=== PATIENT | female | born 1995 | race African-American/Black ===

== ENCOUNTER 2017-10-13 10:44 | Emergency (ER) | payer MEDICAID, OTHER ==
[~2017-10-13] VITALS: Ht 167.6 cm; Wt 89.8 kg
--- OUTSIDE RECORDS SUMMARY | 2017-10-13 10:49 | XMS REPORT | Continuity of Care Document ---
Author Author [facility] Address Unknown Phone Unavailable Allergies There is no data. Medications There is no data. Problems Date Dx Coded Attending Type Code Diagnosis Diagnosed By 05/07/2014 V20.2 WELL CHILD 05/07/2014 V65.41 EXERCISE COUNSELING 05/07/2014 V65.49 NUTRITION COUNSELING 05/07/2014 V85.52 BODY MASS INDEX PEDIATRIC 5TH PERCENTILE TO LESS THAN 85TH PERCENTILE FOR AGE 0805/07/2014 V20.2 WELL CHILD 05/07/2014 V65.41 EXERCISE COUNSELING 05/07/2014 V65.49 NUTRITION COUNSELING 05/07/2014 V85.52 BODY MASS INDEX PEDIATRIC 5TH PERCENTILE TO LESS THAN 85TH PERCENTILE FOR AGE 0905/11/2014 V74.1 TB SCREENING 05/11/2014 V74.1 TB SCREENING Procedures Code [place] [address] TB INTRADERMAL TEST 05/11/2014 Results There is no data. Encounters ACCT No. Visit Date/Time Discharge Status Pt. Type Provider Facility Loc./Unit Complaint [id number] 05/13/2014 15:10:00 05/13/2014 23:59:59 CLS Outpatient [id number] 05/11/2014 15:01:00 05/11/2014 23:59:59 CLS Outpatient
--- NOTE | 2017-10-13 12:16 | ED Cough/URI ---
General Chief Complaint: Cough/Cold/Flu Symptoms Stated Complaint: COLD/FLU SYMPTOMS Nursing Triage Note: Cough, nasal congestion, fever, N/V/D x 3 days. Source: patient Exam Limitations: no limitations History of Present Illness Date Seen by Provider: Oct 13, 2017 Time Seen by Provider: 12:16 Initial Comments 21-year-old female patient presents to the emergency department with complaints of cough, nasal congestion, rhinorrhea, and fever beginning Saturday or Saturday of last week. Reports last 3 days has had nausea, vomiting, diarrhea. denies current fever. Timing/Duration: week Severity/Quality: productive cough (clear productive cough) Prior Episodes/Possible Cause: no prior episodes Modifying Factors: Worse With Coughing, Worse With Other (eating) Allergies and Home Medications Allergies Coded Allergies: No Known Drug Allergies (Unverified , 10/13/17) Home Medications Benzonatate 200 Mg Capsule, 200 MG PO Q8H PRN for COUGH, #30 Ref 0 Prescribed by: ANDI DENG on 10/13/17 1238 Guaifenesin/Pseudoephedrne HCl 1 Each Tab.er.12h, 1 EACH PO Q12H PRN for CONGESTION, #20 Ref 0 Prescribed by: ANDI DENG on 10/13/17 1238 Ondansetron 8 Mg Tab.rapdis, 8 MG PO Q6H PRN for NAUSEA/VOMITING-1ST LINE, #10 Ref 0 Prescribed by: ANDI DENG on 10/13/17 1238 Constitutional: see HPI, chills, No diaphoresis, No fever (denies current fever ), malaise EENTM: see HPI, nose congestion, throat pain, other (rhinorrhea), No ear discharge, No ear pain, No throat swelling Respiratory: cough, phlegm, No short of breath, No stridor, No wheezing Cardiovascular: no symptoms reported Gastrointestinal: No abdominal pain, No constipation, No diarrhea, loss of appetite, No melena, nausea, vomiting Genitourinary: No decreased output, No dysuria, No frequency, No hematuria, No pain Musculoskeletal: other (generalized bodyaches) Skin: no symptoms reported Psychiatric/Neurological: No Symptoms Reported All Other Systems Reviewed Negative Unless Noted: Yes (Negative excepted noted.) Past Mkixvrq-Lpwqhf-Wmcxwr Hx Patient Social History Alcohol Use: Occasionally Uses Alcohol Beverage of Choice: Beer Recreational Drug Use: No Smoking Status: Never a Smoker 2nd Hand Smoke Exposure: No Recent Foreign Travel: No Contact w/Someone Who Travel: No Recent Infectious Disease Expo: No Recent Hopitalizations: No Ebola Symptoms: Denies Symptoms Listed Immunizations Up To Date Tetanus Booster (TDap): Unknown Seasonal Allergies Seasonal Allergies: No Surgeries History of Surgeries: No Respiratory History of Respiratory Disorde: No Cardiovascular History of Cardiac Disorders: No Neurological History of Neurological Disord: No Reproductive System Sexually Transmitted Disease: No HIV/AIDS: No Genitourinary History of Genitourinary Disor: No Gastrointestinal History of Gastrointestinal Di: No Musculoskeletal History of Musculoskeletal Dis: No Endocrine History of Endocrine Disorders: No HEENT History of HEENT Disorders: No Cancer History of Cancer: No Psychosocial History of Psychiatric Problem: No Integumentary History of Skin or Integumenta: No Blood Transfusions History of Blood Disorders: No Adverse Reaction to a Blood Tr: No Reviewed Nursing Assessment Reviewed/Agree w Nursing PMH: Yes Family Medical History Significant Family History: No Pertinent Family Hx Physical Exam Vital Signs Vital Sign - Last 12Hours 10/13/17 11:05 Temp 99.2 Pulse 92 Resp 18 B/P (MAP) 130/81 O2 Delivery Room Air Capillary Refill : General Appearance: WD/WN, no apparent distress HEENT: PERRL/EOMI, TMs normal, pharyngeal erythema, No tonsillar exudate, other ((+) nasal congestion and nasal mucosal swelling . (+) rhinorrhea.) Neck: non-tender, full range of motion, supple, lymphadenopathy (R), lymphadenopathy (L) Respiratory: lungs clear, normal breath sounds, no respiratory distress, no accessory muscle use Cardiovascular: normal peripheral pulses, regular rate, rhythm, no edema, no murmur Gastrointestinal: normal bowel sounds, soft, no organomegaly, No distended, No guarding, No rebound, tenderness (subcostal tenderness.) Extremities: no pedal edema, normal capillary refill Neurologic/Psychiatric: alert, normal mood/affect, oriented x 3 Skin: normal color, warm/dry Progress/Results/Core Measures Suspected Sepsis SIRS Temperature:99.2 Pulse: Respiratory Rate: Blood Pressure / Mean: Results/Orders Micro Results Microbiology 10/13/17 Influenza Types A,B Antigen (GAYLE) - Final, Complete My Orders Orders - ANDI DENG Influenza A And B Antigens (10/13/17 11:27) Ondansetron Oral Dissolve Tab (Zofran (10/13/17 12:27) Ibuprofen Tablet (Motrin Tablet) (10/13/17 12:27) Benzonatate Capsule (Tessalon Perles) (10/13/17 12:30) Medications Given in ED Current Medications Medications Dose Ordered Sig/Pili Route Start Time Stop Time Status Last Admin Dose Admin Benzonatate 200 mg ONCE ONCE PO 10/13/17 12:30 10/13/17 12:31 DC 10/13/17 12:38 200 MG Vital Signs/I&O Vital Sign - Last 12Hours 10/13/17 11:05 Temp 99.2 Pulse 92 Resp 18 B/P (MAP) 130/81 O2 Delivery Room Air Capillary Refill : Departure Communication (Admissions) Progress Notes lab findings discussed with the patient. patient tolerating po without difficulty. plan for dsch to home. Impression Impression: Primary Impression: Nausea, vomiting, and diarrhea Additional Impression: Influenza-like illness Disposition: HOME, SELF-CARE Condition: Improved Departure-Patient Inst. Decision time for Depature: 12:40 Referrals: [facility] (PCP/Family) Primary Care Physician Patient Instructions: Flu, Adult (DC), Viral Gastroenteritis, Adult (DC) Add. Discharge Instructions: All discharge instructions reviewed with patient and/or family. Voiced understanding. Medications as instructed. Tylenol extra strength over-the- counter as directed for pain or fever. Ibuprofen 800 mg by mouth every 8 hours as needed for pain or fever. Push fluids. Cool humidifier. Saline nasal spray [id number] as needed for nasal congestion. Follow-up with [facility] as an outpatient for recheck if no improvement in symptoms. Return in the emergency department immediately for worsened vomiting , decreased urination, inability to urinate, fever, shortness of air, difficulty swallowing, abdominal pain, or any other concerns. Scripts Guaifenesin/Pseudoephedrne HCl (Mucinex D ER Tablet) 1 Each Tab.er.12h 1 EACH PO Q12H Y for CONGESTION, #20 TAB 0 Refills Prov: ANDI DENG 10/13/17 Benzonatate (Benzonatate) 200 Mg Capsule 200 MG PO Q8H Y for COUGH, #30 CAP 0 Refills Prov: ANDI DENG 10/13/17 Ondansetron (Ondansetron Odt) 8 Mg Tab.rapdis 8 MG PO Q6H Y for NAUSEA/VOMITING-1ST LINE, #10 TAB 0 Refills Prov: ANDI DENG 10/13/17 Work/School Note: School/Childcare Release Date Seen in the Emergency Department: Oct 13, 2017 Return to School: Oct 16, 2017 Restrictions: Return-No Fever (24hrs), Return-No Vomiting(24hrs) ANDI DENG Oct 13, 2017 12:16
[2017-10-13] MEDS ORDERED: IBUPROFEN 800 MG (MOTRIN) TAB PO STA (12:27)
[2017-10-13] MEDS ORDERED: ONDANSETRON 4 MG (ZOFRAN) ORAL DISSOLVE TAB SL STA (12:27)
[2017-10-13] MEDS ORDERED: BENZONATATE 100 MG (TESSALON) CAPSULE PO ONE (12:30)
[2017-10-13] MEDS ORDERED: GUAI-148 PO (12:38)
[2017-10-13] MEDS ORDERED: BENZ200C51 PO (12:38)
[2017-10-13] MEDS ORDERED: ONDA8TAB13 PO (12:38)
== END 2017-10-13 13:00 | disposition home or self-care (01) ==
LOC: ER 10:47
DX: J11.1 Influenza due to unidentified influenza virus with other respiratory manifestations (principal); R19.7 Diarrhea, unspecified
CPT/HCPCS: 87804; 99283

== ENCOUNTER 2018-01-05 14:58 | Emergency (ER) | payer MEDICAID, OTHER ==
[~2018-01-05] VITALS: Ht 167.6 cm; Wt 89.8 kg
[~2018-01-05 14:58] MED LIST: BENZ200C51 PO; GUAI-148 PO; ONDA8TAB13 PO
--- OUTSIDE RECORDS SUMMARY | 2018-01-05 15:02 | XMS REPORT | Continuity of Care Document ---
Author Author [facility] Address Unknown Phone Unavailable Allergies Active Description Code Type Severity Reaction Onset Reported/Identified Relationship to Patient Clinical Status Yes No Known Drug Allergies [id number] Drug Allergy Unknown N/A 10/13/2017 Medications There is no data. Problems Date [...] V74.1 TB SCREENING 05/11/2014 V74.1 TB SCREENING 10/13/2017 ANDI SMITH Ot J11.1 FLU DUE TO UNIDENTIFIED INFLUENZA VIRUS 10/13/2017 ANDI SMITH Ot R09.81 NASAL CONGESTION 10/13/2017 ANDI SMITH Ot R19.7 DIARRHEA, UNSPECIFIED 10/15/2017 ANDI SMITH Ot J11.1 FLU DUE TO UNIDENTIFIED INFLUENZA VIRUS 10/15/2017 ANDI SMITH Ot R09.81 NASAL CONGESTION 10/15/2017 ANDI SMITH Ot R19.7 DIARRHEA, UNSPECIFIED Procedures Code [place] [address] TB INTRADERMAL TEST 05/11/2014 Results Test Result Range Influenza virus A and B antigen detection - 10/13/17 11:11 FLU RESULT NEGATIVE FOR INFLUENZA A AND B ANTIGENS BY IA NRG Encounters ACCT No. Visit Date/Time Discharge Status Pt. Type Provider Facility Loc./Unit Complaint [id number] 05/13/2014 15:10:00 05/13/2014 23:59:59 CLS Outpatient [id number] 05/11/2014 15:01:00 05/11/2014 23:59:59 CLS Outpatient [id number] 10/13/2017 10:47:00 10/13/2017 13:00:00 DIS Emergency ANDI SMITH [facility] ER COLD/FLU SYMPTOMS
--- OUTSIDE RECORDS SUMMARY | 2018-01-05 15:02 | XMS REPORT ---
Author Author Mely Rubio [facility] Address [address] [place] [address] Care Team Providers Care Resistor Tester Name Role Phone Mely Rubio Unavailable PROBLEMS Type Condition ICD9-CM Code [id number] Code Onset Dates Condition Status SNOMED Code Problem Positive depression screening R68.89 Active [id number] Problem Myopia, bilateral H52.13 Active 83054719 Problem Cross bite 524.27 Active 667154104 Problem Caries K02.9 Active 90155428 Problem Dental examination V72.2 Active [id number] ALLERGIES No Information ENCOUNTERS Encounter Location Date Diagnosis [facility] [address] [place] [address] Oct, Positive depression screening R68.89 Dental [address] [id number] [place] [id number] Oct, Caries K02.9 [facility] [address] [id number] Oct, General counseling for prescription of oral contraceptives Z30.9 ; Pelvic pain R10.2 ; Dysmenorrhea N94.6 ; Menorrhagia with regular cycle N92.0 ; Positive depression screening R68.89 and Encounter for test, result negative Z32.02 Dental [address] [place] [address] [id number] Aug, Caries K02.9 Dental [id number] [place] [id number] Aug, [facility] [address] [place], [place] [id number] Jul, Myopia, bilateral H52.13 [facility] [address] [place] [address] [id number] Jul, Myopia, bilateral H52.13 Dental [id number] [place] [address] [id number] Jul, Disturbance of tooth eruption or exfoliation K00.6 Optometry [address] [place], [place] [id number] Jun, Myopia, bilateral H52.13 Dental [address] [id number] Jun, Caries K02.[address] [id number] Apr Need for prophylactic vaccination and inoculation against single disease V05.[address] [id number] Apr, Dental caries 521.[address] [id number] Mar Well child check V20.[address] [id number] Mar, Decay, teeth 521.[address] [id number] January, Dental [address] [id number] Dec, Chronic gingivitis, plaque induced 523.[address] [id number] Nov, Dental examination V72.2 ; Cross bite 524.27 ; Chronic gingivitis, plaque induced 523.10 ; Dental caries 521.00 ; Accretions on teeth 523.6 and Disturbance, tooth, eruption 520.[address] [id number] Oct, Pediatrics [id number] [place] [address] [id number] Sep Pharyngitis 462 ; Allergic rhinitis 477.9 and Sinusitis 473.[address] [id number] Sep IMMUNIZATIONS No Known Immunizations SOCIAL HISTORY Never Assessed REASON FOR VISIT [facility] Consult PLAN OF CARE VITAL SIGNS MEDICATIONS Medication Instructions Dosage Frequency Start Date End Date Duration Status Microgestin FE 09/28 1-20 MG-MCG Orally Once a day 1 tablet 24h Oct, 30 day(s) Active RESULTS No Results PROCEDURES No Known procedures INSTRUCTIONS MEDICATIONS ADMINISTERED No Known Medications
--- OUTSIDE RECORDS SUMMARY | 2018-01-05 15:02 | XMS REPORT ---
Author Author Mar Wadsworth [facility] Address [address] [place], [place] [id number] Care Team Providers Care Cellophane Wrapping Examiner Name Role Phone Mar Wadsworth Unavailable PROBLEMS Type Condition ICD9-CM Code JCK76-ZK Code Onset Dates Condition Status SNOMED Code Problem Positive depression screening R68.89 Active [id number] Problem Myopia, bilateral H52.13 Active 10993925 Problem Cross bite 524.27 Active 550143340 Problem Caries K02.9 Active 84828779 Problem Dental examination V72.2 Active [id number] ALLERGIES No Known Allergies ENCOUNTERS Encounter Location Date Diagnosis [facility] [address] [place] [address] Oct, Positive depression screening R68.89 Dental [address] [place] [address] [id number] Oct, Caries K02.9 [facility] [id number] [place] [address] [id number] Oct, General counseling for prescription of oral contraceptives Z30.9 ; Pelvic pain R10.2 ; Dysmenorrhea N94.6 ; Menorrhagia with regular cycle N92.0 ; Positive depression screening R68.89 and Encounter for test, result negative Z32.02 Dental [id number] [place] [address] [id number] Aug, Caries K02.9 Dental [id number] [place] [address] [id number] Aug, [facility] [address] [place] [id number] Jul, Myopia, bilateral H52.13 [facility] [address] [place] [address] [id number] Jul, Myopia, bilateral H52.13 Dental [id number] [place] [address] [id number] Jul, Disturbance of tooth eruption or exfoliation K00.6 Optometry [address] [place] [id number] Jun, Myopia, bilateral H52.13 Dental [address] [id number] Jun, Caries K02.9 [address] [address] [id number] Apr Need for prophylactic vaccination and inoculation against single disease V05.9 Dental [address] [id number] Apr, Dental caries 521.[address] Pediatric[address] [id number] Mar Well child check V20.2 Dental [address] [id number] Mar, Decay, teeth 521.[address] [id number] January, Dental [address] [id number] Dec, Chronic gingivitis, plaque induced 523.[address] [id number] Nov, Dental examination V72.2 ; Cross bite 524.27 ; Chronic gingivitis, plaque induced 523.10 ; Dental caries 521.00 ; Accretions on teeth 523.6 and Disturbance, tooth, eruption 520.[address] [id number] Oct, Pediatrics [address] [id number] Sep Pharyngitis 462 ; Allergic rhinitis 477.9 and Sinusitis 473.[address] [id number] Sep IMMUNIZATIONS No Known Immunizations SOCIAL HISTORY Never Assessed REASON FOR VISIT pelvic pain, abdominal pain PLAN OF CARE Activity Details Follow Up 3 Months, prn Reason:Fu on BCM VITAL SIGNS Height 66.93 in 2015-10-12 Weight 202 lbs 2015-10-12 Temperature 97.7 degrees Fahrenheit 2015-10-12 BMI 31.70 kg/m2 2015-10-12 Blood pressure systolic 111 mm Hg 2015-10-12 Blood pressure diastolic 65 mm Hg 2015-10-12 MEDICATIONS Medication Instructions Dosage Frequency Start Date End Date Duration Status Microgestin FE 09/28 1-20 MG-MCG Orally Once a day 1 tablet 24h Oct, 30 day(s) Active RESULTS No Results PROCEDURES Procedure Date Ordered Result Body Site urinalysis automated without microscopy Oct 12, 2015 TEST Oct 12, 2015 INSTRUCTIONS MEDICATIONS ADMINISTERED No Known Medications
[2018-01-05 17:23] LABS: AMPHETAMINE SCREEN, URINE NEGATIVE (NEGATIVE); BENZODIAZEPINES SCREEN URINE NEGATIVE (NEGATIVE); CANNABINOID SCREEN, URINE POSITIVE (NEGATIVE); COCAINE SCREEN URINE NEGATIVE (NEGATIVE); METHAMPHETAMINE SCREEN URINE S NEGATIVE (NEGATIVE)
[2018-01-05 17:24] LABS: BARBITURATE SCREEN URINE NEGATIVE (NEGATIVE); METHADONE STAT NEGATIVE (NEGATIVE); OPIATE SCREEN URINE NEGATIVE (NEGATIVE); OXYCODONE STAT NEGATIVE (NEGATIVE); PROPOXYPHENE STAT NEGATIVE (NEGATIVE); TRICYCLIC ANTIDEPRESSANTS SCRE NEGATIVE (NEGATIVE)
[2018-01-05 17:25] LABS: BASOPHILS % (AUTO) 0 % (0-10); EOSINOPHILS # (AUTO) 0.1 10^3/uL (0.0-0.3); EOSINOPHILS % (AUTO) 1 % (0-10); HEMATOCRIT 43 % (35-52); HEMOGLOBIN 14.7 G/DL (11.5-16.0); LYMPHOCYTES # (AUTO) 2.6 X 10^3 (1.0-4.0); LYMPHOCYTES % (AUTO) 39 % (12-44); MEAN CORPUSCULAR HEMOGLOBIN 31 PG (25-34); MEAN CORPUSCULAR HGB CONC 34 G/DL (32-36); MEAN CORPUSCULAR VOLUME 91 FL (80-99); MEAN PLATELET VOLUME 10.5 FL (7.4-10.4); MONOCYTES # (AUTO) 0.4 X 10^3 (0.0-1.0); MONOCYTES % (AUTO) 6 % (0-12); NEUTROPHILS # (AUTO) 3.6 X 10^3 (1.8-7.8); NEUTROPHILS % (AUTO) 53 % (42-75); PLATELET COUNT 265 10^3/uL (130-400); RED BLOOD COUNT 4.72 10^6/uL (4.35-5.85); RED CELL DISTRIBUTION WIDTH 12.1 % (10.0-14.5); WHITE BLOOD COUNT 6.7 10^3/uL (4.3-11.0)
[2018-01-05 17:41] LABS: ALANINE AMINOTRANSFERASE 9 U/L (0-55); ALBUMIN 4.5 GM/DL (3.2-4.5); ALKALINE PHOSPHATASE 75 U/L (40-136); BILIRUBIN,TOTAL 1.6 MG/DL (0.1-1.0); BUN/CREATININE RATIO 5; CALCIUM 9.8 MG/DL (8.5-10.1); CARBON DIOXIDE 23 MMOL/L (21-32); CHLORIDE 106 MMOL/L (98-107); CREATININE SERUM 0.78 MG/DL (0.60-1.30); GFR ESTIMATED > 60; GLUCOSE 87 MG/DL (70-105); POTASSIUM 3.4 MMOL/L (3.6-5.0); SODIUM 140 MMOL/L (135-145); TOTAL PROTEIN 8.2 GM/DL (6.4-8.2)
[2018-01-05 17:42] LABS: CLARITY,URINE SLIGHTLY CLOUDY; COLOR,URINE AMBER; GLUCOSE, URINE (UA) NEGATIVE (NEGATIVE); KETONES,URINE 1+ (NEGATIVE); LEUKOCYTE ESTERASE ,URINE 1+ (NEGATIVE); NITRITE,URINE NEGATIVE (NEGATIVE); PH,URINE 5 (5-9); PROTEIN,URINE 2+ (NEGATIVE); UROBILINOGEN,URINE 4 MG/DL (NORMAL)
--- NOTE | 2018-01-05 17:45 | ED General ---
General Chief Complaint: General Problems/Pain Stated Complaint: HEADACHE, WEAKNESS, DIZZY Nursing Triage Note: PT C/O HEADACHE AND WEAKNESS X 1 WEEK. SHE ALSO C/O NAUSEA WITHOUT VOMITING. 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 She reports that over the past week or so she has been troubled by a mild but persistent headache. There has been some blurring of visiON. She reports that her balance has been retained. She has run no fever or had any sweats or chills. She reports that some time has passed since her last optometric vision testing. Timing/Duration: 1 Week Severity: Mild, Moderate Associated Systoms: Malaise, Nausea/Vomiting Allergies and Home Medications Allergies Coded Allergies: No Known Drug Allergies (Unverified , 10/13/17) Home Medications Benzonatate 200 Mg Capsule, 200 MG PO Q8H PRN for COUGH Prescribed by: ANDI DENG on 10/13/17 1238 Guaifenesin/Pseudoephedrne HCl 1 Each Tab.er.12h, 1 EACH PO Q12H PRN for CONGESTION Prescribed by: ANDI DENG on 10/13/17 1238 Ondansetron 8 Mg Tab.rapdis, 8 MG PO Q6H PRN for NAUSEA/VOMITING-1ST LINE Prescribed by: ANDI DENG on 10/13/17 1238 Patient Home Medication List Home Medication List Reviewed: Yes Review of Systems Constitutional: see HPI EENTM: blurred vision Respiratory: no symptoms reported Cardiovascular: no symptoms reported Gastrointestinal: nausea Genitourinary: no symptoms reported Musculoskeletal: no symptoms reported Skin: no symptoms reported Psychiatric/Neurological: No Symptoms Reported Hematologic/Lymphatic: No Symptoms Reported Immunological/Allergic: no symptoms reported Past Hlcshpr-Shhcrg-Ztejxa Hx Patient Social History Alcohol Use: Occasionally Uses Number of Drinks Today: AA Alcohol Beverage of Choice: Beer Recreational Drug Use: No Smoking Status: Never a Smoker 2nd Hand Smoke Exposure: No Recent Foreign Travel: No Contact w/Someone Who Travel: No Recent Infectious Disease Expo: No Recent Hopitalizations: No Immunizations Up To Date Tetanus Booster (TDap): Unknown Seasonal Allergies Seasonal Allergies: No Past Medical History Surgeries: No Respiratory: No Cardiac: No Neurological: No Sexually Transmitted Disease: No HIV/AIDS: No Genitourinary: No Gastrointestinal: No Musculoskeletal: No Endocrine: No HEENT: No Cancer: No Psychosocial: No Integumentary: No Blood Disorders: No Adverse Reaction/Blood Tranf: No Family Medical History No Pertinent Family Hx Physical Exam Vital Signs Vital Signs - First Documented 01/05/18 15:16 Temp 98.9 Pulse 90 Resp 16 B/P (MAP) 135/90 (105) Pulse Ox 97 O2 Delivery Room Air Capillary Refill : Less Than 3 Seconds General Appearance: No Apparent Distress Eyes: Bilateral Eye Normal Inspection, Bilateral Eye PERRL HEENT: Normal ENT Inspection Neck: Full Range of Motion, Normal Inspection, Non Tender, Supple, Carotid Bruit Respiratory: Chest Non Tender, Lungs Clear, Normal Breath Sounds, No Accessory Muscle Use, No Respiratory Distress Cardiovascular: Regular Rate, Rhythm, No Edema, No Gallop, No JVD, No Murmur, Normal Peripheral Pulses Gastrointestinal: Normal Bowel Sounds, No Organomegaly, No Pulsatile Mass, Non Tender, Soft Back: Normal Inspection, No CVA Tenderness, No Vertebral Tenderness Extremity: Normal Capillary Refill, Normal Inspection, Normal Range of Motion, Non Tender, No Calf Tenderness, No Pedal Edema Neurologic/Psychiatric: Alert, Oriented x3, No Motor/Sensory Deficits, Normal Mood/Affect Skin: Normal Color, Warm/Dry Lymphatic: No Adenopathy Progress/Results/Core Measures Suspected Sepsis Recent Fever Within 48 Hours: No Infection Criteria Present: None New/Unexplained Altered Menta: No Sepsis Screen: No Definite Risk SIRS Temperature:98.9 Pulse: 90 Respiratory Rate: 16 Laboratory Tests 01/05/18 17:09: White Blood Count 6.7 Blood Pressure 135 /90 Mean: 105 Laboratory Tests 01/05/18 17:09: Creatinine 0.78, Platelet Count 265, Total Bilirubin 1.6H Results/Orders Lab Results Laboratory Tests Test 01/05/18 17:00 01/05/18 17:09 Range/Units Urine Color RUCHI H Urine Clarity SLIGHTLY CLOUDY Urine pH 5 5-9 Urine Specific [place] 1.025 H 1.016-1.022 Urine Protein 2+ H NEGATIVE Urine Glucose (UA) NEGATIVE NEGATIVE Urine Ketones 1+ H NEGATIVE Urine Nitrite NEGATIVE NEGATIVE Urine Bilirubin 1+ H NEGATIVE Urine Urobilinogen 4 H NORMAL MG/DL Urine Leukocyte Esterase 1+ H NEGATIVE Urine RBC (Auto) NEGATIVE NEGATIVE Urine RBC RARE /HPF Urine WBC 5-10 H /HPF Urine Squamous Epithelial Cells 2-5 /HPF Urine Renal Epithelial Cells NONE /HPF Urine Crystals PRESENT H /LPF Urine Amorphous Sediment LARGE KRISTOFER URATES H /LPF Urine Bacteria LARGE H /HPF Urine Casts NONE /LPF Urine Mucus LARGE H /LPF Urine Culture Indicated YES Urine Opiates Screen NEGATIVE NEGATIVE Urine Oxycodone Screen NEGATIVE NEGATIVE Urine Methadone Screen NEGATIVE NEGATIVE Urine Propoxyphene Screen NEGATIVE NEGATIVE Urine Barbiturates Screen NEGATIVE NEGATIVE Ur Tricyclic Antidepressants Screen NEGATIVE NEGATIVE Urine Phencyclidine Screen NEGATIVE NEGATIVE Urine Amphetamines Screen NEGATIVE NEGATIVE Urine Methamphetamines Screen NEGATIVE NEGATIVE Urine Benzodiazepines Screen NEGATIVE NEGATIVE Urine Cocaine Screen NEGATIVE NEGATIVE Urine Cannabinoids Screen POSITIVE H NEGATIVE White Blood Count 6.7 4.3-11.0 10^3/uL Red Blood Count 4.72 4.35-5.85 10^6/uL Hemoglobin 14.7 11.5-16.0 G/DL Hematocrit 43 35-52 % Mean Corpuscular Volume 91 80-99 FL Mean Corpuscular Hemoglobin 31 25-34 PG Mean Corpuscular Hemoglobin Concent 34 32-36 G/DL Red Cell Distribution Width 12.1 10.0-14.5 % Platelet Count 265 130-400 10^3/uL Mean Platelet Volume 10.5 H 7.4-10.4 FL Neutrophils (%) (Auto) 53 42-75 % Lymphocytes (%) (Auto) 39 12-44 % Monocytes (%) (Auto) 6 0-12 % Eosinophils (%) (Auto) 1 0-10 % Basophils (%) (Auto) 0 0-10 % Neutrophils # (Auto) 3.6 1.8-7.8 X 10^3 Lymphocytes # (Auto) 2.6 1.0-4.0 X 10^3 Monocytes # (Auto) 0.4 0.0-1.0 X 10^3 Eosinophils # (Auto) 0.1 0.0-0.3 10^3/uL Basophils # (Auto) 0.0 0.0-0.1 10^3/uL Sodium Level 140 135-145 MMOL/L Potassium Level 3.4 L 3.6-5.0 MMOL/L Chloride Level 106 98-107 MMOL/L Carbon Dioxide Level 23 21-32 MMOL/L Anion Gap 11 5-14 MMOL/L Blood Urea Nitrogen 4 L 7-18 MG/DL Creatinine 0.78 0.60-1.30 MG/DL Estimat Glomerular Filtration Rate > 60 BUN/Creatinine Ratio 5 Glucose Level 87 70-105 MG/DL Calcium Level 9.8 8.5-10.1 MG/DL Total Bilirubin 1.6 H 0.1-1.0 MG/DL Aspartate Amino Transf (AST/SGOT) 15 5-34 U/L Alanine Aminotransferase (ALT/SGPT) 9 0-55 U/L Alkaline Phosphatase 75 40-136 U/L Total Protein 8.2 6.4-8.2 GM/DL Albumin 4.5 3.2-4.5 GM/DL My Orders Orders - RAVINDRA FERGUSON MD Cbc With Automated Diff (01/05/18 16:48) Comprehensive Metabolic Panel (01/05/18 16:48) Drug Screen Stat (Urine) (01/05/18 16:48) Ua Culture If Indicated (01/05/18 16:48) Urine Culture (01/05/18 17:00) Vital Signs/I&O 01/05/18 15:16 Temp 98.9 Pulse 90 Resp 16 B/P (MAP) 135/90 (105) Pulse Ox 97 O2 Delivery Room Air Capillary Refill : Less Than 3 Seconds Blood Pressure Mean: 105 Departure Communication (Admissions) Lab work basically normal save a UA which suggests urinary tract infection. Impression Primary Impression: UTI Additional Impression: headache Disposition: 01 HOME, SELF-CARE Condition: Stable/Unchanged Departure-Patient Inst. Decision time for Depature: 17:56 Referrals: [facility] (PCP) Primary Care Physician Add. Discharge Instructions: All discharge instructions reviewed with patient and/or family. Voiced understanding. Plenty of liquids Antibiotics as prescribed. Arrange a vision check Scripts Cephalexin (Keflex) 500 Mg Capsule 500 MG PO 3 TIMES A DAY 3 TIME, #15 CAP Prov: RAVINDRA FERGUSON MD 01/05/18 RAVINDRA FERGUSON MD Jan 05, 2018 17:45
[2018-01-05 17:48] LABS: AMORPHOUS SEDIMENT,UR LARGE AMOR URATES /LPF; BACTERIA,URINE LARGE /HPF; BILIRUBIN,URINE 1+ (NEGATIVE); RBC,URINE RARE /HPF
[2018-01-05] MEDS ORDERED: CEPH-507 PO (17:58)
[2018-01-05] MEDS ORDERED: CEFDINIR 300 MG (OMNICEF) CAP PO ONE (18:00)
[2018-01-05 18:10] VITALS: BP 135/90
== END 2018-01-05 18:10 | disposition home or self-care (01) ==
LOC: EDUNIT# 14:58 → ER 14:59
DX: N39.0 Urinary tract infection, site not specified (principal); R51 Headache
CPT/HCPCS: 36415; 80053; 80306; 81000; 85025; 87088; 99283

== ENCOUNTER → 2018-07-23 | Emergency (ER) | payer SELFPAY ==
[~2018-07-23] VITALS: Ht 170.2 cm; Wt 89.8 kg
[~2018-07-23] MED LIST changes: +ANTACID SUSP 30 ML UDC (MYLANTA) PO ONE; +CEPH-507 PO; +LIDOCAINE 2% VISCOUS 15 ML UDC PO ONE; +SUCR1TAB36 PO
[2018-07-23 12:37] LABS: BASOPHILS % (AUTO) 0 % (0-10); EOSINOPHILS # (AUTO) 0.1 10^3/uL (0.0-0.3); EOSINOPHILS % (AUTO) 1 % (0-10); HEMATOCRIT 39 % (35-52); HEMOGLOBIN 13.3 G/DL (11.5-16.0); LYMPHOCYTES # (AUTO) 1.9 X 10^3 (1.0-4.0); LYMPHOCYTES % (AUTO) 23 % (12-44); MEAN CORPUSCULAR HEMOGLOBIN 31 PG (25-34); MEAN CORPUSCULAR HGB CONC 34 G/DL (32-36); MEAN CORPUSCULAR VOLUME 91 FL (80-99); MEAN PLATELET VOLUME 10.5 FL (7.4-10.4); MONOCYTES # (AUTO) 0.5 X 10^3 (0.0-1.0); MONOCYTES % (AUTO) 7 % (0-12); NEUTROPHILS # (AUTO) 5.6 X 10^3 (1.8-7.8); NEUTROPHILS % (AUTO) 69 % (42-75); PLATELET COUNT 248 10^3/uL (130-400); RED BLOOD COUNT 4.32 10^6/uL (4.35-5.85); RED CELL DISTRIBUTION WIDTH 12.3 % (10.0-14.5); WHITE BLOOD COUNT 8.1 10^3/uL (4.3-11.0)
[2018-07-23 12:57] LABS: ALANINE AMINOTRANSFERASE 11 U/L (0-55); ALBUMIN 4.5 GM/DL (3.2-4.5); ALKALINE PHOSPHATASE 65 U/L (40-136); AMYLASE 54 U/L (25-125); BILIRUBIN,TOTAL 1.3 MG/DL (0.1-1.0); BUN/CREATININE RATIO 8; CALCIUM 9.5 MG/DL (8.5-10.1); CARBON DIOXIDE 22 MMOL/L (21-32); CHLORIDE 105 MMOL/L (98-107); CREATININE SERUM 0.75 MG/DL (0.60-1.30); GFR ESTIMATED > 60; GLUCOSE 85 MG/DL (70-105); LIPASE 16 U/L (8-78); POTASSIUM 4.2 MMOL/L (3.6-5.0); SODIUM 136 MMOL/L (135-145)
[2018-07-23 13:04] LABS: BILIRUBIN,URINE NEGATIVE (NEGATIVE); CLARITY,URINE CLEAR; COLOR,URINE YELLOW; GLUCOSE, URINE (UA) NEGATIVE (NEGATIVE); KETONES,URINE 1+ (NEGATIVE); LEUKOCYTE ESTERASE ,URINE 1+ (NEGATIVE); NITRITE,URINE NEGATIVE (NEGATIVE); PH,URINE 5 (5-9); PROTEIN,URINE 2+ (NEGATIVE); UROBILINOGEN,URINE 8 MG/DL (NORMAL)
[2018-07-23 13:11] LABS: BACTERIA,URINE TRACE /HPF; RBC,URINE RARE /HPF; SQUAMOUS EPITHELIAL CELL,UR 0-2 /HPF; WBC,URINE 0-2 /HPF
--- NOTE | 2018-07-23 13:22 | ED Abdominal Pain ---
General Chief Complaint: Abdominal/GI Problems Stated Complaint: STOMACH PAIN Nursing Triage Note: Pt complains of abd pain since last night. Pt stated saw doctor in [facility] for same issue and stated she might have ulcer and to stop taking ibuprofren. Pt had [employer] last night and after could not sleep from pain. Pt complains of pain at a 9 on scale that has burning feeling. She also stated she had small bowel movement this morning and might be constipated. Sepsis Screen: No Definite Risk Source of Information: Patient Exam Limitations: No Limitations History of Present Illness Date Seen by Provider: Jul 23, 2018 Time Seen by Provider: 12:10 Initial Comments Patient is a 22-year-old female who presents to the emergency room with abdominal pain that started last night. She has been seen for stomach ulcers in the past when she was in [place] and was placed on activated magnesium for ulcers but did not take it like she was supposed to. She reports that her pain is not really improved since she was seen last became worse last night after having Borrego's. Last bowel movement was this morning. Timing/Duration: 1 Day Location: Epigastric Radiation: No Radiation Activities at Onset: None Associated Symptoms: Denies Symptoms Allergies and Home Medications Allergies Coded Allergies: No Known Drug Allergies (Unverified , 10/13/17) Home Medications Benzonatate 200 Mg Capsule, 200 MG PO Q8H PRN for COUGH Prescribed by: ANDI DENG on 10/13/17 1238 Cephalexin 500 Mg Capsule, 500 MG PO 3 TIMES A DAY 3 TIME Prescribed by: RAVINDRA FERGUSON on 01/05/18 1758 Guaifenesin/Pseudoephedrne HCl 1 Each Tab.er.12h, 1 EACH PO Q12H PRN for CONGESTION Prescribed by: ANDI DENG on 10/13/17 1238 Ondansetron 8 Mg Tab.rapdis, 8 MG PO Q6H PRN for NAUSEA/VOMITING-1ST LINE Prescribed by: ANDI DENG on 10/13/17 1238 Sucralfate 1 Gm Tablet, 1 GM PO QID PRN for 1 hour before meals Prescribed by: TANIA PALMA on 07/23/18 1322 Patient Home Medication List Home Medication List Reviewed: Yes Review of Systems Review of Systems Constitutional: see HPI; No chills, No fever Gastrointestinal: See HPI, Abdominal Pain (epigastric abdominal pain) All Other Systems Reviewed Negative Unless Noted: Yes Past Ekihpzx-Xjyfjo-Xkvert Hx Past Med/Social Hx: Reviewed Nursing Past Med/Soc Hx Patient Social History Alcohol Beverage of Choice: Beer 2nd Hand Smoke Exposure: No Recent Foreign Travel: No Contact w/Someone Who Travel: No Recent Infectious Disease Expo: No Recent Hopitalizations: No Physical Abuse: No Sexual Abuse: No Mistreated: No Fear: No Immunizations Up To Date Tetanus Booster (TDap): Unknown Seasonal Allergies Seasonal Allergies: No Past Medical History Surgeries: No Respiratory: No Cardiac: No Neurological: No : No Last Menstrual Period: Jun 11, 2018 Sexually Transmitted Disease: No HIV/AIDS: No Genitourinary: No Gastrointestinal: Yes Ulcer Musculoskeletal: No Endocrine: No HEENT: No Hearing Impairment: Denies Cancer: No Psychosocial: No Integumentary: No Blood Disorders: No Adverse Reaction/Blood Tranf: No Family Medical History Reviewed Nursing Family Hx No Pertinent Family Hx Physical Exam Vital Signs Vital Signs - First Documented 07/23/18 12:11 Temp 98.2 Pulse 82 Resp 16 B/P (MAP) 119/70 (86) Pulse Ox 99 O2 Delivery Room Air Capillary Refill : Less Than 3 Seconds Height/Weight/BMI Height: 5'7.00" Weight: 198lbs. oz. [id number]; 28.12 BMI Method:Stated General Appearance: WD/WN, no apparent distress Respiratory: chest non-tender, lungs clear, normal breath sounds, no respiratory distress, no accessory muscle use Cardiovascular: normal peripheral pulses, regular rate, rhythm, no edema, no gallop, no JVD, no murmur Gastrointestinal: normal bowel sounds, non tender, soft, no organomegaly, no pulsatile mass Neurologic/Psychiatric: alert, normal mood/affect, oriented x 3 Skin: normal color, warm/dry Progress/Results/Core Measures Results/Orders Lab Results Laboratory Tests Test 07/23/18 12:29 Range/Units White Blood Count 8.1 4.3-11.0 10^3/uL Red Blood Count 4.32 L 4.35-5.85 10^6/uL Hemoglobin 13.3 11.5-16.0 G/DL Hematocrit 39 35-52 % Mean Corpuscular Volume 91 80-99 FL Mean Corpuscular Hemoglobin 31 25-34 PG Mean Corpuscular Hemoglobin Concent 34 32-36 G/DL Red Cell Distribution Width 12.3 10.0-14.5 % Platelet Count 248 130-400 10^3/uL Mean Platelet Volume 10.5 H 7.4-10.4 FL Neutrophils (%) (Auto) 69 42-75 % Lymphocytes (%) (Auto) 23 12-44 % Monocytes (%) (Auto) 7 0-12 % Eosinophils (%) (Auto) 1 0-10 % Basophils (%) (Auto) 0 0-10 % Neutrophils # (Auto) 5.6 1.8-7.8 X 10^3 Lymphocytes # (Auto) 1.9 1.0-4.0 X 10^3 Monocytes # (Auto) 0.5 0.0-1.0 X 10^3 Eosinophils # (Auto) 0.1 0.0-0.3 10^3/uL Basophils # (Auto) 0.0 0.0-0.1 10^3/uL Urine Color YELLOW Urine Clarity CLEAR Urine pH 5 5-9 Urine Specific [place] 1.020 1.016-1.022 Urine Protein 2+ H NEGATIVE Urine Glucose (UA) NEGATIVE NEGATIVE Urine Ketones 1+ H NEGATIVE Urine Nitrite NEGATIVE NEGATIVE Urine Bilirubin NEGATIVE NEGATIVE Urine Urobilinogen 8 H NORMAL MG/DL Urine Leukocyte Esterase 1+ H NEGATIVE Urine RBC (Auto) NEGATIVE NEGATIVE Urine RBC RARE /HPF Urine WBC 0-2 /HPF Urine Squamous Epithelial Cells 0-2 /HPF Urine Renal Epithelial Cells NONE /HPF Urine Crystals NONE /LPF Urine Bacteria TRACE /HPF Urine Casts NONE /LPF Urine Mucus LARGE H /LPF Urine Culture Indicated NO Sodium Level 136 135-145 MMOL/L Potassium Level 4.2 3.6-5.0 MMOL/L Chloride Level 105 98-107 MMOL/L Carbon Dioxide Level 22 21-32 MMOL/L Anion Gap 9 5-14 MMOL/L Blood Urea Nitrogen 6 L 7-18 MG/DL Creatinine 0.75 0.60-1.30 MG/DL Estimat Glomerular Filtration Rate > 60 BUN/Creatinine Ratio 8 Glucose Level 85 70-105 MG/DL Calcium Level 9.5 8.5-10.1 MG/DL Corrected Calcium 9.1 8.5-10.1 MG/DL Total Bilirubin 1.3 H 0.1-1.0 MG/DL Aspartate Amino Transf (AST/SGOT) 16 5-34 U/L Alanine Aminotransferase (ALT/SGPT) 11 0-55 U/L Alkaline Phosphatase 65 40-136 U/L Total Protein 8.0 6.4-8.2 GM/DL Albumin 4.5 3.2-4.5 GM/DL Amylase Level 54 25-125 U/L Lipase 16 8-78 U/L Serum Test, Qualitative NEGATIVE NEGATIVE My Orders Orders - TANIA PALMA Comprehensive Metabolic Panel (07/23/18 12:20) Lipase (07/23/18 12:20) Amylase (07/23/18 12:20) Ua Culture If Indicated (07/23/18 12:20) Saline Lock/Iv-Start (07/23/18 12:20) Cbc With Automated Diff (07/23/18 12:20) Hcg,Qualitative Serum (07/23/18 12:20) Lidocaine 2% Viscous 15 Ml (Xylocaine Vi (07/23/18 12:30) Antacid Suspension (Mylanta Suspension (07/23/18 12:30) Medications Given in ED Current Medications Medications Dose Ordered Sig/Pili Route Start Time Stop Time Status Last Admin Dose Admin Al Hydrox/Mg Hydrox/Simethicone 30 ml ONCE ONCE PO 07/23/18 12:30 07/23/18 12:31 DC 07/23/18 12:46 30 ML Lidocaine HCl 15 ml ONCE ONCE PO 07/23/18 12:30 07/23/18 12:31 DC 07/23/18 12:46 15 ML Vital Signs/I&O 07/23/18 07/23/18 12:11 13:36 Temp 98.2 Pulse 82 73 Resp 16 16 B/P (MAP) 119/70 (86) 109/81 (90) Pulse Ox 99 99 O2 Delivery Room Air Blood Pressure Mean: 86 Progress Progress Note : Time: 13:00 Progress Note Patient seen and evaluated the patient. Her pain is completely gone with GI cocktail. She agrees with plans for discharge, follow-up, return precautions were given. Departure Impression Primary Impression: Abdominal pain Additional Impression: Stomach ulcer Disposition: 01 HOME, SELF-CARE Condition: Stable/Unchanged Departure-Patient Inst. Decision time for Depature: 13:18 Referrals: MONY CARDOZA MD [facility] (PCP) Primary Care Physician Patient Instructions: Acute Abdomen (Belly Pain), Adult (DC), Gastric Ulcer (DC ) Add. Discharge Instructions: Take medication as directed. Follow-up with Dr. Cardoza's office to discuss scheduling an EGD for further evaluation of your stomach ulcers. Follow-up with Dr. Johnson at [facility]. Call today for appointment times and try to schedule them within 1 week from today. Return back to the emergency room for any worsening symptoms or concerns as needed. All discharge instructions reviewed with patient and/or family. Voiced understanding. Scripts Sucralfate (Carafate) 1 Gm Tablet 1 GM PO QID PRN for 1 hour before meals for 10 Days, #40 TAB Prov: TANIA PALMA 07/23/18 TANIA PALMA Jul 23, 2018 13:22
[2018-07-23 13:36] VITALS: BP 109/81
--- OUTSIDE RECORDS SUMMARY | 2018-07-23 15:45 | XMS REPORT | Continuity of Care Document ---
Author Author [facility] Address Unknown Phone Unavailable Allergies Active Description Code Type Severity Reaction Onset Reported/Identified Relationship to Patient Clinical Status Yes No Known Drug Allergies [id number] Drug Allergy Unknown N/A 10/13/2017 Medications There [...] 10/15/2017 ANDI SMITH Ot R19.7 DIARRHEA, UNSPECIFIED 01/05/2018 RAVINDRA FERGUSON MD Ot N39.0 URINARY TRACT INFECTION, SITE NOT SPECIF 01/05/2018 RAVINDRA FERGUSON MD Ot R51 HEADACHE 01/07/2018 RAVINDRA FERGUSON MD Ot N39.0 URINARY TRACT INFECTION, SITE NOT SPECIF 01/07/2018 RAVINDRA FERGUSON MD Ot R51 HEADACHE Procedures Code [place] [address] TB INTRADERMAL TEST 05/11/2014 Results Test Result Range Influenza virus A and B antigen detection - 10/13/17 11:11 FLU RESULT NEGATIVE FOR INFLUENZA A AND B ANTIGENS BY IA NRG Urine drug screening test - 01/05/18 17:00 Urine phencyclidine detection by screening method NEGATIVE NEGATIVE Urine benzodiazepines detection by screening method NEGATIVE NEGATIVE Urine cocaine detection NEGATIVE NEGATIVE Urine amphetamines detection by screening method NEGATIVE NEGATIVE Urine methamphetamine detection by screening method NEGATIVE NEGATIVE Urine cannabinoids detection by screening method POSITIVE NEGATIVE Urine opiates detection by screening method NEGATIVE NEGATIVE Urine barbiturates detection NEGATIVE NEGATIVE Screening urine tricyclic antidepressants detection NEGATIVE NEGATIVE Urine methadone detection by screening method NEGATIVE NEGATIVE Urine oxycodone detection NEGATIVE NEGATIVE Urine propoxyphene detection NEGATIVE NEGATIVE Complete urinalysis with reflex to culture - 01/05/18 17:00 Urine color determination RUCHI NRG Urine clarity determination SLIGHTLY CLOUDY NRG Urine pH measurement by test strip 5 5-9 Specific gravity of urine by test strip 1.025 1.016- 1.022 Urine protein assay by test strip, semi-quantitative 2+ NEGATIVE Urine glucose detection by automated test strip NEGATIVE NEGATIVE Erythrocytes detection in urine sediment by light microscopy NEGATIVE NEGATIVE Urine ketones detection by automated test strip 1+ NEGATIVE Urine nitrite detection by test strip NEGATIVE NEGATIVE Urine total bilirubin detection by test strip 1+ NEGATIVE Urine urobilinogen measurement by automated test strip (mass/volume) 4 mg/dL NORMAL Urine leukocyte esterase detection by dipstick 1+ NEGATIVE Automated urine sediment erythrocyte count by microscopy (number/high power field) RARE NRG Automated urine sediment leukocyte count by microscopy (number/high power field ) [HPF] NRG Bacteria detection in urine sediment by light microscopy LARGE NRG Squamous epithelial cells detection in urine sediment by light microscopy 2-5 NRG Crystals detection in urine sediment by light microscopy PRESENT NRG Casts detection in urine sediment by light microscopy NONE NRG Mucus detection in urine sediment by light microscopy LARGE NRG Complete urinalysis with reflex to culture YES NRG Amorphous sediment detection in urine sediment by light microscopy LARGE KRISTOFER URATES NRG Renal epithelial cells detection in urine sediment by light microscopy NONE NRG Bacterial urine culture - 01/05/18 17:00 URINE CULTURE RESULTS <10,000/ML NRG Complete blood count (CBC) with automated white blood cell (WBC) differential - 01/05/18 17:09 Blood leukocytes automated count (number/volume) 6.7 10*3/uL 4.3-11.0 Blood erythrocytes automated count (number/volume) 4.72 10*6/uL 4.35-5.85 Venous blood hemoglobin measurement (mass/volume) 14.7 g/dL 11.5-16.0 Blood hematocrit (volume fraction) 43 % 35-52 Automated erythrocyte mean corpuscular volume 91 [foz_us] 80-99 Automated erythrocyte mean corpuscular hemoglobin (mass per erythrocyte) 31 pg 25-34 Automated erythrocyte mean corpuscular hemoglobin concentration measurement ( mass/volume) 34 g/dL 32-36 Automated erythrocyte distribution width ratio 12.1 % 10.0-14.5 Automated blood platelet count (count/volume) 265 10*3/uL 130-400 Automated blood platelet mean volume measurement 10.5 [foz_us] 7.4-10.4 Automated blood neutrophils/100 leukocytes 53 % 42-75 Automated blood lymphocytes/100 leukocytes 39 % 12-44 Blood monocytes/100 leukocytes 6 % 0-12 Automated blood eosinophils/100 leukocytes 1 % 0-10 Automated blood basophils/100 leukocytes 0 % 0-10 Blood neutrophils automated count (number/volume) 3.6 10*3 1.8-7.8 Blood lymphocytes automated count (number/volume) 2.6 10*3 1.0-4.0 Blood monocytes automated count (number/volume) 0.4 10*3 0.0-1.0 Automated eosinophil count 0.1 10*3/uL 0.0-0.3 Automated blood basophil count (count/volume) 0.0 10*3/uL 0.0-0.1 Comprehensive metabolic panel - 01/05/18 17:09 Serum or plasma sodium measurement (moles/volume) 140 mmol/L 135-145 Serum or plasma potassium measurement (moles/volume) 3.4 mmol/L 3.6-5.0 Serum or plasma chloride measurement (moles/volume) 106 mmol/L 98-107 Carbon dioxide 23 mmol/L 21-32 Serum or plasma anion gap determination (moles/volume) 11 mmol/L 5-14 Serum or plasma urea nitrogen measurement (mass/volume) 4 mg/dL 7-18 Serum or plasma creatinine measurement (mass/volume) 0.78 mg/dL 0.60-1.30 Serum or plasma urea nitrogen/creatinine mass ratio 5 NRG Serum or plasma creatinine measurement with calculation of estimated glomerular filtration rate > NRG Serum or plasma glucose measurement (mass/volume) 87 mg/dL 70-105 Serum or plasma calcium measurement (mass/volume) 9.8 mg/dL 8.5-10.1 Serum or plasma total bilirubin measurement (mass/volume) 1.6 mg/dL 0.1-1.0 Serum or plasma alkaline phosphatase measurement (enzymatic activity/volume) 75 U/L 40-136 Serum or plasma aspartate aminotransferase measurement (enzymatic activity/ volume) 15 U/L 5-34 Serum or plasma alanine aminotransferase measurement (enzymatic activity/volume ) 9 U/L 0-55 Serum or plasma protein measurement (mass/volume) 8.2 g/dL 6.4-8.2 Serum or plasma albumin measurement (mass/volume) 4.5 g/dL 3.2-4.5 Encounters ACCT No. Visit Date/Time Discharge Status Pt. Type Provider Facility Loc./Unit Complaint [id number] 05/13/2014 15:10:00 05/13/2014 23:59:59 CLS Outpatient [id number] 05/11/2014 15:01:00 05/11/2014 23:59:59 CLS Outpatient [id number] 01/05/2018 14:59:00 01/05/2018 18:10:00 DIS Emergency RAVINDRA FERGUSON MD [facility] ER HEADACHE, WEAKNESS, DIZZY [id number] 10/13/2017 10:47:00 10/13/2017 13:00:00 DIS Emergency ANDI SMITH [facility] ER COLD/FLU SYMPTOMS
== END | disposition home or self-care (01) ==
LOC: EDUNIT# 11:08 → ER 11:10
DX: K27.9 Peptic ulcer, site unspecified, unspecified as acute or chronic, without hemorrhage or perforation (principal)
CPT/HCPCS: 36415; 80053; 81000; 82150; 83690; 84703; 85025; 99283

== ENCOUNTER 2018-07-25 13:48 | Emergency (ER) | payer SELFPAY ==
[~2018-07-25] VITALS: Ht 167.6 cm; Wt 89.8 kg
[~2018-07-25 13:48] MED LIST changes: -ANTACID SUSP 30 ML UDC (MYLANTA) PO ONE; -LIDOCAINE 2% VISCOUS 15 ML UDC PO ONE
--- OUTSIDE RECORDS SUMMARY | 2018-07-25 13:54 | XMS REPORT | Continuity of Care Document ---
Author Author [facility] Address Unknown Phone Unavailable Allergies Active Description Code Type Severity Reaction Onset Reported/Identified Relationship to Patient Clinical Status Yes No Known Drug Allergies [id number] Drug Allergy Unknown N/A 10/13/2017 Medications There [...] 01/07/2018 RAVINDRA FERGUSON MD Ot R51 HEADACHE 07/25/2018 TANIA PALMA Ot K27.9 PEPTIC ULC, SITE UNSP, UNSP AC OR CHR 07/25/2018 TANIA PALMA Ot R10.13 EPIGASTRIC PAIN Procedures Code Description [place] [address] TB INTRADERMAL TEST 05/11/2014 Results Test Result [...] plasma albumin measurement (mass/volume) 4.5 g/dL 3.2-4.5 Complete blood count (CBC) with automated white blood cell (WBC) differential - 07/23/18 12:29 Blood leukocytes automated count (number/volume) 8.1 10*3/uL 4.3-11.0 Blood erythrocytes automated count (number/volume) 4.32 10*6/uL 4.35-5.85 Venous blood hemoglobin measurement (mass/volume) 13.3 g/dL 11.5-16.0 Blood hematocrit (volume fraction) 39 % 35-52 Automated erythrocyte mean corpuscular volume 91 [foz_us] 80-99 Automated erythrocyte mean corpuscular hemoglobin (mass per erythrocyte) 31 pg 25-34 Automated erythrocyte mean corpuscular hemoglobin concentration measurement ( mass/volume) 34 g/dL 32-36 Automated erythrocyte distribution width ratio 12.3 % 10.0-14.5 Automated blood platelet count (count/volume) 248 10*3/uL 130-400 Automated blood platelet mean volume measurement 10.5 [foz_us] 7.4-10.4 Automated blood neutrophils/100 leukocytes 69 % 42-75 Automated blood lymphocytes/100 leukocytes 23 % 12-44 Blood monocytes/100 leukocytes 7 % 0-12 Automated blood eosinophils/100 leukocytes 1 % 0-10 Automated blood basophils/100 leukocytes 0 % 0-10 Blood neutrophils automated count (number/volume) 5.6 10*3 1.8-7.8 Blood lymphocytes automated count (number/volume) 1.9 10*3 1.0-4.0 Blood monocytes automated count (number/volume) 0.5 10*3 0.0-1.0 Automated eosinophil count 0.1 10*3/uL 0.0-0.3 Automated blood basophil count (count/volume) 0.0 10*3/uL 0.0-0.1 Serum or plasma choriogonadotropin ( test) detection - 07/23/18 12:29 Serum or plasma choriogonadotropin ( test) detection NEGATIVE NEGATIVE Comprehensive metabolic panel - 07/23/18 12:29 Serum or plasma sodium measurement (moles/volume) 136 mmol/L 135-145 Serum or plasma potassium measurement (moles/volume) 4.2 mmol/L 3.6-5.0 Serum or plasma chloride measurement (moles/volume) 105 mmol/L 98-107 Carbon dioxide 22 mmol/L 21-32 Serum or plasma anion gap determination (moles/volume) 9 mmol/L 5-14 Serum or plasma urea nitrogen measurement (mass/volume) 6 mg/dL 7-18 Serum or plasma creatinine measurement (mass/volume) 0.75 mg/dL 0.60-1.30 Serum or plasma urea nitrogen/creatinine mass ratio 8 NRG Serum or plasma creatinine measurement with calculation of estimated glomerular filtration rate > NRG Serum or plasma glucose measurement (mass/volume) 85 mg/dL 70-105 Serum or plasma calcium measurement (mass/volume) 9.5 mg/dL 8.5-10.1 Serum or plasma total bilirubin measurement (mass/volume) 1.3 mg/dL 0.1-1.0 Serum or plasma alkaline phosphatase measurement (enzymatic activity/volume) 65 U/L 40-136 Serum or plasma aspartate aminotransferase measurement (enzymatic activity/ volume) 16 U/L 5-34 Serum or plasma alanine aminotransferase measurement (enzymatic activity/volume ) 11 U/L 0-55 Serum or plasma protein measurement (mass/volume) 8.0 g/dL 6.4-8.2 Serum or plasma albumin measurement (mass/volume) 4.5 g/dL 3.2-4.5 CALCIUM CORRECTED 9.1 mg/dL 8.5-10.1 Serum or plasma amylase measurement (enzymatic activity/volume) - 07/23/18 12: 29 Serum or plasma amylase measurement (enzymatic activity/volume) 54 U /L 25-125 Lipase - 07/23/18 12:29 Lipase 16 U/L 8-78 Complete urinalysis with reflex to culture - 07/23/18 12:29 Urine color determination YELLOW NRG Urine clarity determination CLEAR NRG Urine pH measurement by test strip 5 5-9 Specific gravity of urine by test strip 1.020 1.016- 1.022 Urine protein assay by test strip, semi-quantitative 2+ NEGATIVE Urine glucose detection by automated test strip NEGATIVE NEGATIVE Erythrocytes detection in urine sediment by light microscopy NEGATIVE NEGATIVE Urine ketones detection by automated test strip 1+ NEGATIVE Urine nitrite detection by test strip NEGATIVE NEGATIVE Urine total bilirubin detection by test strip NEGATIVE NEGATIVE Urine urobilinogen measurement by automated test strip (mass/volume) 8 mg/dL NORMAL Urine leukocyte esterase detection by dipstick 1+ NEGATIVE Automated urine sediment erythrocyte count by microscopy (number/high power field) RARE NRG Automated urine sediment leukocyte count by microscopy (number/high power field ) [HPF] NRG Bacteria detection in urine sediment by light microscopy TRACE NRG Squamous epithelial cells detection in urine sediment by light microscopy 0-2 NRG Crystals detection in urine sediment by light microscopy NONE NRG Casts detection in urine sediment by light microscopy NONE NRG Mucus detection in urine sediment by light microscopy LARGE NRG Complete urinalysis with reflex to culture NO NRG Renal epithelial cells detection in urine sediment by light microscopy NONE NRG Encounters ACCT No. Visit Date/Time Discharge Status Pt. Type Provider Facility Loc./Unit Complaint [id number] 05/13/2014 15:10:00 05/13/2014 23:59:59 CLS Outpatient [id number] 05/11/2014 15:01:00 05/11/2014 23:59:59 CLS Outpatient [id number] 01/05/2018 14:59:00 01/05/2018 18:10:00 DIS Emergency RAVINDRA FERGUSON MD [facility] ER HEADACHE, WEAKNESS, DIZZY [id number] 10/13/2017 10:47:00 10/13/2017 13:00:00 DIS Emergency ANDI SMITH [facility] ER COLD/FLU SYMPTOMS [id number] 07/23/2018 16:48:00 ACT Emergency HANNAH LEE MD [facility] ER ULCER ISSUES,SEEN HERE TODAY [id number] 07/23/2018 11:10:00 ACT Outpatient TANIA PALMA [facility] ER STOMACH PAIN
[2018-07-25] MEDS ORDERED: NS IV 1000 ML 1,000 ML IV STA (15:24)
[2018-07-25] MEDS ORDERED: FAMOTIDINE 20MG/2ML IV (PEPCID) IV STA (15:24)
[2018-07-25] MEDS ORDERED: ANTACID SUSP 30 ML UDC (MYLANTA) PO ONE (15:30)
[2018-07-25] MEDS ORDERED: LIDOCAINE 2% VISCOUS 15 ML UDC PO ONE (15:30)
[2018-07-25] MEDS ORDERED: PANTOPRAZOLE 40 MG (PROTONIX) VIAL IV ONE (15:30)
--- NOTE | 2018-07-25 15:40 | ED GI ---
General Chief Complaint: Abdominal/GI Problems Stated Complaint: STOMACH PAIN Nursing Triage Note: PATIENT AMBULATORY TO ER WITH COMPLAINT OF DIAGNOSED WITH ULCER ON SATURDAY AFTER BEING SEEN HERE IN THIS ER. PATIENT STATES SHE WAS GIVEN SULCRAFATE WHICH IS NOT HELPING AND CONTINUES TO HAVE VOMITING, EPIGASTRIC PAIN, AND IS LIGHTHEADED. Sepsis Screen: No Definite Risk Source of Information: Patient Exam Limitations: No Limitations History of Present Illness Date Seen by Provider: Jul 25, 2018 Time Seen by Provider: 15:25 Initial Comments Here with report of central/epigastric abdominal pain. She's been seen for this before. She was initiated on Carafate but not on acid reduction. She has tried to set up with a surgeon but is working to insurance concerns. States that she is vomiting her meals and the Carafate makes her lightheaded. Denies blood in her vomit. Timing/Duration: 1 Week, Getting Worse Severity/Quality: Moderate, Burning Location: Epigastric Radiation: Back Activities at Onset: None Modifying Factors: Worsens With Eating; Improves With Resting, Improves With Vomiting Associated Symptoms: Back Pain; No Chest Pain, No Fever/Chills; Fatigue, Nausea /Vomiting; No Shortness of Air, No Swelling/Mass in Abdomen, No Weakness Allergies and Home Medications Allergies Coded Allergies: No Known Drug Allergies (Unverified , 10/13/17) Home Medications Benzonatate 200 Mg Capsule, 200 MG PO Q8H PRN for COUGH Prescribed by: ANDI DENG on 10/13/17 1238 Cephalexin 500 Mg Capsule, 500 MG PO 3 TIMES A DAY 3 TIME Prescribed by: RAVINDRA FERGUSON on 01/05/18 1758 Guaifenesin/Pseudoephedrne HCl 1 Each Tab.er.12h, 1 EACH PO Q12H PRN for CONGESTION Prescribed by: ANDI DENG on 10/13/17 1238 Ondansetron 8 Mg Tab.rapdis, 8 MG PO Q6H PRN for NAUSEA/VOMITING-1ST LINE Prescribed by: ANDI DENG on 10/13/17 1238 Sucralfate 1 Gm Tablet, 1 GM PO QID PRN for 1 hour before meals Prescribed by: TANIA PALMA on 07/23/18 1322 Patient Home Medication List Home Medication List Reviewed: Yes Review of Systems Review of Systems Constitutional: see HPI; No chills, No fever EENTM: No Symptoms Reported Respiratory: No Symptoms Reported Cardiovascular: No Symptoms Reported Gastrointestinal: See HPI, Abdominal Pain, Nausea, Vomiting Genitourinary: No Symptoms Reported Musculoskeletal: back pain; No muscle pain Skin: no symptoms reported Psychiatric/Neurological: No Symptoms Reported All Other Systems Reviewed Negative Unless Noted: Yes Past Gmnokux-Daywsg-Nasizx Hx Past Med/Social Hx: Reviewed Nursing Past Med/Soc Hx Patient Social History Alcohol Use: Occasionally Uses Number of Drinks Today: AA Alcohol Beverage of Choice: Beer Recreational Drug Use: No Smoking Status: Never a Smoker 2nd Hand Smoke Exposure: No Recent Foreign Travel: No Contact w/Someone Who Travel: No Recent Infectious Disease Expo: No Recent Hopitalizations: No Physical Abuse: No Sexual Abuse: No Mistreated: No Fear: No Immunizations Up To Date Tetanus Booster (TDap): Unknown PED Vaccines UTD: Yes Seasonal Allergies Seasonal Allergies: No Past Medical History Surgeries: No Respiratory: No Cardiac: No Neurological: No Sexually Transmitted Disease: No HIV/AIDS: No Genitourinary: No Gastrointestinal: Yes Ulcer Musculoskeletal: No Endocrine: No HEENT: No Hearing Impairment: Denies Cancer: No Psychosocial: No Integumentary: No Blood Disorders: No Adverse Reaction/Blood Tranf: No Family Medical History Reviewed Nursing Family Hx No Pertinent Family Hx Physical Exam Vital Signs Vital Signs - First Documented 07/25/18 14:42 Temp 98.1 Pulse 70 Resp 16 B/P (MAP) 121/83 (96) O2 Delivery Room Air Capillary Refill : Less Than 3 Seconds Height/Weight/BMI Height: 5'6.00" Weight: 198lbs. oz. 89.212454vj; 28.12 BMI Method:Stated General Appearance: WD/WN, no apparent distress Neck: full range of motion, supple Respiratory: lungs clear, normal breath sounds Cardiovascular: regular rate, rhythm, no murmur Gastrointestinal: soft; No guarding, No rebound; tenderness (epigastric) Extremities: non-tender, normal inspection Back: normal inspection, no CVA tenderness, no vertebral tenderness Neurologic/Psychiatric: alert, oriented x 3 Skin: normal color, warm/dry Focused Exam Lactate Level 07/25/18 16:20: Lactic Acid Level 0.60 Lactic Acid Level Laboratory Tests Test 07/25/18 16:20 Lactic Acid Level 0.60 MMOL/L (0.50-2.00) Progress/Results/Core Measures Results/Orders Lab Results Laboratory Tests Test 07/25/18 15:50 07/25/18 16:20 Range/Units White Blood Count 7.3 4.3-11.0 10^3/uL Red Blood Count 4.14 L 4.35-5.85 10^6/uL Hemoglobin 12.7 11.5-16.0 G/DL Hematocrit 38 35-52 % Mean Corpuscular Volume 91 80-99 FL Mean Corpuscular Hemoglobin 31 25-34 PG Mean Corpuscular Hemoglobin Concent 34 32-36 G/DL Red Cell Distribution Width 11.9 10.0-14.5 % Platelet Count 206 130-400 10^3/uL Mean Platelet Volume 10.5 H 7.4-10.4 FL Neutrophils (%) (Auto) 50 42-75 % Lymphocytes (%) (Auto) 40 12-44 % Monocytes (%) (Auto) 8 0-12 % Eosinophils (%) (Auto) 2 0-10 % Basophils (%) (Auto) 0 0-10 % Neutrophils # (Auto) 3.7 1.8-7.8 X 10^3 Lymphocytes # (Auto) 2.9 1.0-4.0 X 10^3 Monocytes # (Auto) 0.6 0.0-1.0 X 10^3 Eosinophils # (Auto) 0.1 0.0-0.3 10^3/uL Basophils # (Auto) 0.0 0.0-0.1 10^3/uL Sodium Level 138 135-145 MMOL/L Potassium Level 3.7 3.6-5.0 MMOL/L Chloride Level 106 98-107 MMOL/L Carbon Dioxide Level 24 21-32 MMOL/L Anion Gap 8 5-14 MMOL/L Blood Urea Nitrogen 6 L 7-18 MG/DL Creatinine 0.72 0.60-1.30 MG/DL Estimat Glomerular Filtration Rate > 60 BUN/Creatinine Ratio 8 Glucose Level 76 70-105 MG/DL Calcium Level 9.5 8.5-10.1 MG/DL Corrected Calcium 9.3 8.5-10.1 MG/DL Total Bilirubin 1.4 H 0.1-1.0 MG/DL Aspartate Amino Transf (AST/SGOT) 16 5-34 U/L Alanine Aminotransferase (ALT/SGPT) 12 0-55 U/L Alkaline Phosphatase 60 40-136 U/L Total Protein 7.5 6.4-8.2 GM/DL Albumin 4.2 3.2-4.5 GM/DL Lipase 10 8-78 U/L Lactic Acid Level 0.60 0.50-2.00 MMOL/L My Orders Orders - HEATHER WILLARD MD Cbc With Automated Diff (07/25/18 15:24) Comprehensive Metabolic Panel (07/25/18 15:24) Lipase (07/25/18:24) Lidocaine 2% Viscous 15 Ml (Xylocaine Vi (07/25/18 15:30) Ns Iv 1000 Ml (Sodium Chloride 0.9%) (07/25/18 15:24) Antacid Suspension (Mylanta Suspension (07/25/18 15:30) Famotidine Injection (Pepcid Injection) (07/25/18 15:24) Saline Lock/Iv-Start (07/25/18 15:24) Pantoprazole Injection (Protonix Injecti (07/25/18 15:30) Lactic Acid Analyzer (07/25/18 15:47) Blood Culture (07/25/18 15:47) Ketorolac Injection (Toradol Injection) (07/25/18 16:56) Sucralfate Tablet (Carafate Tablet) (07/25/18 17:00) Medications Given in ED Current Medications Medications Dose Ordered Sig/Pili Route Start Time Stop Time Status Last Admin Dose Admin Al Hydrox/Mg Hydrox/Simethicone 30 ml ONCE ONCE PO 07/25/18 15:30 07/25/18 15:31 DC 07/25/18 16:21 30 ML Lidocaine HCl 15 ml ONCE ONCE PO 07/25/18 15:30 07/25/18 15:31 DC 07/25/18 16:21 15 ML Pantoprazole 40 mg ONCE ONCE IV 07/25/18 15:30 07/25/18 15:31 DC 07/25/18 16:14 40 MG Vital Signs/I&O 07/25/18 14:42 Temp 98.1 Pulse 70 Resp 16 B/P (MAP) 121/83 (96) O2 Delivery Room Air Blood Pressure Mean: 96 Progress Progress Note : Progress Note Seen and evaluated. IV, labs, will saline 1 L bolus due to elevated heart rate , Protonix 40 mg IV and Pepcid 20 mg IV due to epigastric pain. GI cocktail ordered. We will check basic labs and compared to previous. Monitor patient 1700: Was better but now is having some return of symptoms. Toradol 30 mg IV and sucralfate 2 g by mouth ordered. 1725: Discharged home with return precautions. Patient verbalize understanding instructions and agreement with plan. Departure Impression Primary Impression: Epigastric abdominal pain Disposition: HOME, SELF-CARE Condition: Improved Departure-Patient Inst. Decision time for Depature: 17:24 Referrals: [facility] (PCP/Family) Primary Care Physician Patient Instructions: Acute Abdomen (Belly Pain), Adult (DC) Add. Discharge Instructions: All discharge instructions reviewed with patient and/or family. Voiced understanding. You should start Pepcid or the generic famotidine 20 mg twice daily for the next several days and then daily as needed thereafter. You should also start omeprazole 20 mg daily and take at least 2 weeks worth of this. You may extend that out to 6 weeks. Follow-up with [facility] for recheck and further evaluation next week. Return for worse pain, fever, vomiting, weakness, breathing problems or other concerns as needed. When you take your sucralfate, you should chew up the tablet into a slurry first and then swallow as this will improve its ability to work on helping your stomach. Clear liquid or light diet for the next few days and then advance as tolerated. Ensure drinking plenty of fluids. HEATHER WILLARD MD Jul 25, 2018 15:40
[2018-07-25 15:58] LABS: BASOPHILS % (AUTO) 0 % (0-10); EOSINOPHILS # (AUTO) 0.1 10^3/uL (0.0-0.3); EOSINOPHILS % (AUTO) 2 % (0-10); HEMATOCRIT 38 % (35-52); HEMOGLOBIN 12.7 G/DL (11.5-16.0); LYMPHOCYTES # (AUTO) 2.9 X 10^3 (1.0-4.0); LYMPHOCYTES % (AUTO) 40 % (12-44); MEAN CORPUSCULAR HEMOGLOBIN 31 PG (25-34); MEAN CORPUSCULAR HGB CONC 34 G/DL (32-36); MEAN CORPUSCULAR VOLUME 91 FL (80-99); MEAN PLATELET VOLUME 10.5 FL (7.4-10.4); MONOCYTES # (AUTO) 0.6 X 10^3 (0.0-1.0); MONOCYTES % (AUTO) 8 % (0-12); NEUTROPHILS # (AUTO) 3.7 X 10^3 (1.8-7.8); NEUTROPHILS % (AUTO) 50 % (42-75); PLATELET COUNT 206 10^3/uL (130-400); RED BLOOD COUNT 4.14 10^6/uL (4.35-5.85); RED CELL DISTRIBUTION WIDTH 11.9 % (10.0-14.5); WHITE BLOOD COUNT 7.3 10^3/uL (4.3-11.0)
[2018-07-25 16:18] LABS: ALANINE AMINOTRANSFERASE 12 U/L (0-55); ALBUMIN 4.2 GM/DL (3.2-4.5); ALKALINE PHOSPHATASE 60 U/L (40-136); BILIRUBIN,TOTAL 1.4 MG/DL (0.1-1.0); BUN/CREATININE RATIO 8; CALCIUM 9.5 MG/DL (8.5-10.1); CARBON DIOXIDE 24 MMOL/L (21-32); CHLORIDE 106 MMOL/L (98-107); CREATININE SERUM 0.72 MG/DL (0.60-1.30); GFR ESTIMATED > 60; GLUCOSE 76 MG/DL (70-105); LIPASE 10 U/L (8-78); POTASSIUM 3.7 MMOL/L (3.6-5.0); SODIUM 138 MMOL/L (135-145); TOTAL PROTEIN 7.5 GM/DL (6.4-8.2)
[2018-07-25] MEDS ORDERED: KETOROLAC 30 MG/ML VIAL IVP STA (16:56)
[2018-07-25] MEDS ORDERED: SUCRALFATE 1 GM (CARAFATE) TAB PO ONE (17:00)
[2018-07-25 17:49] VITALS: BP 101/58
== END 2018-07-25 17:50 | disposition home or self-care (01) ==
LOC: EDUNIT# 13:48 → ER 13:50
DX: R10.13 Epigastric pain (principal); Z87.19 Personal history of other diseases of the digestive system
CPT/HCPCS: 36415; 80053; 83605; 83690; 85025; 87040

== ENCOUNTER 2018-12-21 11:29 | Emergency (ER) | payer SELFPAY ==
[~2018-12-21] VITALS: Ht 167.6 cm; Wt 86.2 kg
[2018-12-21] MEDS ORDERED: ONDN4T PO (12:20)
--- NOTE | 2018-12-21 12:20 | ED GU-Female ---
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 She reports she's been having these symptoms for one month since her last menstrual period was minutes. She is wanting us to confirm her today. Urine was positive when tested on arrival to the emergency room. Timing/Duration: other (1 month) Associated Symptoms: denies symptoms Allergies and Home Medications Allergies Coded Allergies: No Known Drug Allergies (Unverified , 10/13/17) Home Medications Benzonatate 200 Mg Capsule, 200 MG PO Q8H PRN for COUGH Prescribed by: ANDI DENG on 10/13/17 1238 Cephalexin 500 Mg Capsule, 500 MG PO 3 TIMES A DAY 3 TIME Prescribed by: RAVINDRA FERGUSON on 01/05/18 1758 Guaifenesin/Pseudoephedrne HCl 1 Each Tab.er.12h, 1 EACH PO Q12H PRN for CONGESTION Prescribed by: ANDI DENG on 10/13/17 1238 Ondansetron 8 Mg Tab.rapdis, 8 MG PO Q6H PRN for NAUSEA/VOMITING-1ST LINE Prescribed by: ANDI DENG on 10/13/17 1238 Sucralfate 1 Gm Tablet, 1 GM PO QID PRN for 1 hour before meals Prescribed by: TANIA PALMA on 07/23/18 1322 Patient Home Medication List Home Medication List Reviewed: Yes Review of Systems Review of Systems Constitutional: see HPI; No chills, No fever Gastrointestinal: see HPI, nausea Musculoskeletal: see HPI, other (breast tenderness) All Other Systemes Reviewed Negative Unless Noted: Yes Past Jsavjwt-Osrlmr-Pclaea Hx Past Med/Social Hx: Reviewed Nursing Past Med/Soc Hx Patient Social History Alcohol Use: Occasionally Uses Number of Drinks Today: AA Alcohol Beverage of Choice: Beer Recreational Drug Use: No Smoking Status: Never a Smoker 2nd Hand Smoke Exposure: No Recent Foreign Travel: No Contact w/Someone Who Travel: No Recent Hopitalizations: No Immunizations Up To Date Tetanus Booster (TDap): Unknown PED Vaccines UTD: Yes Seasonal Allergies Seasonal Allergies: No Past Medical History Surgeries: No Respiratory: No Cardiac: No Neurological: No Sexually Transmitted Disease: No HIV/AIDS: No Genitourinary: No Gastrointestinal: Yes Ulcer Musculoskeletal: No Endocrine: No HEENT: No Hearing Impairment: Denies Cancer: No Psychosocial: No Integumentary: No Blood Disorders: No Adverse Reaction/Blood Tranf: No Family Medical History Reviewed Nursing Family Hx No Pertinent Family Hx Physical Exam Vital Signs Capillary Refill : Height, Weight, BMI Height: 5'6.00" Weight: 198lbs. oz. 89.918458fw; 28.12 BMI Method:Stated General Appearance: WD/WN, no apparent distress Cardiovascular: normal peripheral pulses, regular rate, rhythm, no edema, no gallop, no JVD, no murmur Respiratory: chest non-tender, lungs clear, normal breath sounds, no respiratory distress, no accessory muscle use, respiratory distress Gastrointestinal: normal bowel sounds, non tender, soft, no organomegaly, no pulsatile mass, abnormal bowel sounds Extremities: normal range of motion, normal capillary refill Neurologic/Psychiatric: alert, normal mood/affect, oriented x 3 Skin: normal color, warm/dry Progress/Results/Core Measures Suspected Sepsis SIRS Temperature: Pulse: Respiratory Rate: Blood Pressure / Mean: Results/Orders My Orders Orders - TANIA PALMA Urine Bedside (12/21/18 11:36) Vital Signs/I&O Capillary Refill : Departure Impression Primary Impression: test positive Disposition: 01 HOME, SELF-CARE Condition: Stable/Unchanged Departure-Patient Inst. Decision time for Depature: 12:18 Referrals: TOBY OH BETHANY N MD GAULT, HOLLY R MD [facility] (PCP) Primary Care Physician Patient Instructions: How to Plan and Prepare for a Healthy , LOCAL PHYSICIAN LIST, Nausea and Vomiting of (DC) Add. Discharge Instructions: You may use Tylenol as directed by the bottle for pain relief. Take nausea medication as directed when needed. Follow-up with your primary care provider within 1 week for recheck. Return back to emergency room for worsening symptoms or concerns as needed. All discharge instructions reviewed with patient and/or family. Voiced understanding. Scripts Ondansetron HCl (Zofran) 4 Mg Tab 4 MG PO Q4H, #14 TAB Prov: TANIA PALMA 12/21/18 TANIA PALMA Dec 21, 2018 12:20
[2018-12-21 12:39] VITALS: BP 106/72
== END 2018-12-21 12:39 | disposition home or self-care (01) ==
LOC: EDUNIT# 11:29 → ER 11:32
DX: R11.0 Nausea (principal); Z87.19 Personal history of other diseases of the digestive system; Z32.01 Encounter for pregnancy test, result positive
CPT/HCPCS: 84703; 99282

== ENCOUNTER 2018-12-22 12:41 | Emergency (ER) | payer SELFPAY ==
[~2018-12-22] VITALS: Ht 170.2 cm; Wt 86.2 kg
[~2018-12-22 12:41] MED LIST changes: +ONDN4T PO
--- NOTE | 2018-12-22 13:10 | ED GU-Female ---
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 Pt reports waking up this morning and having vaginal bleeding accompanied by clots. Pt describes bleeding as spotting. Pt reports LMP 11/15/18. Pt c/o nausea, cramping and lightheadedness. Nursing Sepsis Screen: No Definite Risk Source: patient Exam Limitations: no limitations History of Present Illness Date Seen by Provider: Dec 22, 2018 Time Seen by Provider: 12:50 Initial Comments 23-year-old female who presents to the emergency room with complaints of waking up this morning with having vaginal bleeding and one clot. She reports that she is approximately 4 weeks . She was seen yesterday in the emergency room and had a positive urine test. She also has mild nausea and cramping to her suprapubic area. Timing/Duration: this morning Severity/Quality: cramping Location: suprapubic Radiation: none Associated Symptoms: nausea/vomiting Allergies and Home Medications Allergies Coded Allergies: No Known Drug Allergies (Unverified , 10/13/17) Home Medications Benzonatate 200 Mg Capsule, 200 MG PO Q8H PRN for COUGH Prescribed by: ANDI DENG on 10/13/17 1238 Cephalexin 500 Mg Capsule, 500 MG PO 3 TIMES A DAY 3 TIME Prescribed by: RAVINDRA FERGUSON on 01/05/18 1758 Guaifenesin/Pseudoephedrne HCl 1 Each Tab.er.12h, 1 EACH PO Q12H PRN for CONGESTION Prescribed by: ANDI DENG on 10/13/17 1238 Ondansetron 8 Mg Tab.rapdis, 8 MG PO Q6H PRN for NAUSEA/VOMITING-1ST LINE Prescribed by: ANDI DENG on 10/13/17 1238 Ondansetron HCl 4 Mg Tab, 4 MG PO Q4H Prescribed by: TANIA PALMA on 12/21/18 1220 Sucralfate 1 Gm Tablet, 1 GM PO QID PRN for 1 hour before meals Prescribed by: TANIA PALMA on 07/23/18 1322 Patient Home Medication List Home Medication List Reviewed: Yes Review of Systems Review of Systems Constitutional: see HPI; No chills, No fever Genitourinary: see HPI, other (vaginal spotting with clots) : Yes All Other Systemes Reviewed Negative Unless Noted: Yes Past Vdhiawa-Ooyhat-Ccydjy Hx Past Med/Social Hx: Reviewed Nursing Past Med/Soc Hx Patient Social History Alcohol Use: Denies Use Number of Drinks Today: AA Alcohol Beverage of Choice: Beer Recreational Drug Use: No Smoking Status: Never a Smoker 2nd Hand Smoke Exposure: No Recent Foreign Travel: No Contact w/Someone Who Travel: No Recent Infectious Disease Expo: No Recent Hopitalizations: No Physical Abuse: No Sexual Abuse: No Mistreated: No Immunizations Up To Date Tetanus Booster (TDap): Unknown PED Vaccines UTD: Yes Seasonal Allergies Seasonal Allergies: No Past Medical History Surgeries: No Respiratory: No Cardiac: No Neurological: No Last Menstrual Period: Nov 15, 2018 Sexually Transmitted Disease: No HIV/AIDS: No Genitourinary: No Gastrointestinal: Yes Ulcer Musculoskeletal: No Endocrine: No HEENT: No Hearing Impairment: Denies Cancer: No Psychosocial: No Integumentary: No Blood Disorders: No Adverse Reaction/Blood Tranf: No Family Medical History Reviewed Nursing Family Hx No Pertinent Family Hx Physical Exam Vital Signs Vital Signs - First Documented 12/22/18 12:43 Temp 98.3 Pulse 81 Resp 12 B/P (MAP) 103/62 (76) Pulse Ox 98 O2 Delivery Room Air Capillary Refill : Less Than 3 Seconds Height, Weight, BMI Height: 5'7.00" Weight: 190lbs. oz. 86.139129in; 28.12 BMI Method:Stated General Appearance: WD/WN, no apparent distress Cardiovascular: normal peripheral pulses, regular rate, rhythm, no edema, no gallop, no JVD, no murmur Respiratory: chest non-tender, lungs clear, normal breath sounds, no respiratory distress, no accessory muscle use, respiratory distress Gastrointestinal: normal bowel sounds, non tender, soft, no organomegaly, no pulsatile mass, abnormal bowel sounds Extremities: normal capillary refill Neurologic/Psychiatric: alert, normal mood/affect, oriented x 3 Skin: normal color, warm/dry Progress/Results/Core Measures Suspected Sepsis Recent Fever Within 48 Hours: No Infection Criteria Present: None New/Unexplained Altered Menta: No Sepsis Screen: No Definite Risk SIRS Temperature:98.3 Pulse: 81 Respiratory Rate: 12 Laboratory Tests 12/22/18 13:14: White Blood Count 7.9 Blood Pressure 103 /62 Mean: 76 Laboratory Tests 4/15/19 13:14: Creatinine 0.67, Platelet Count 238, Total Bilirubin 1.7H Results/Orders Lab Results Laboratory Tests Test 12/22/18 13:14 Range/Units White Blood Count 7.9 4.3-11.0 10^3/uL Red Blood Count 4.35 4.35-5.85 10^6/uL Hemoglobin 13.5 11.5-16.0 G/DL Hematocrit 40 35-52 % Mean Corpuscular Volume 91 80-99 FL Mean Corpuscular Hemoglobin 31 25-34 PG Mean Corpuscular Hemoglobin Concent 34 32-36 G/DL Red Cell Distribution Width 12.3 10.0-14.5 % Platelet Count 238 130-400 10^3/uL Mean Platelet Volume 9.9 7.4-10.4 FL Neutrophils (%) (Auto) 69 42-75 % Lymphocytes (%) (Auto) 24 12-44 % Monocytes (%) (Auto) 7 0-12 % Eosinophils (%) (Auto) 0 0-10 % Basophils (%) (Auto) 0 0-10 % Neutrophils # (Auto) 5.4 1.8-7.8 X 10^3 Lymphocytes # (Auto) 1.9 1.0-4.0 X 10^3 Monocytes # (Auto) 0.5 0.0-1.0 X 10^3 Eosinophils # (Auto) 0.0 0.0-0.3 10^3/uL Basophils # (Auto) 0.0 0.0-0.1 10^3/uL Sodium Level 134 L 135-145 MMOL/L Potassium Level 3.8 3.6-5.0 MMOL/L Chloride Level 105 98-107 MMOL/L Carbon Dioxide Level 22 21-32 MMOL/L Anion Gap 7 5-14 MMOL/L Blood Urea Nitrogen 6 L 7-18 MG/DL Creatinine 0.67 0.60-1.30 MG/DL Estimat Glomerular Filtration Rate > 60 BUN/Creatinine Ratio 9 Glucose Level 70 70-105 MG/DL Calcium Level 9.6 8.5-10.1 MG/DL Corrected Calcium 9.4 8.5-10.1 MG/DL Total Bilirubin 1.7 H 0.1-1.0 MG/DL Aspartate Amino Transf (AST/SGOT) 16 5-34 U/L Alanine Aminotransferase (ALT/SGPT) 12 0-55 U/L Alkaline Phosphatase 54 40-136 U/L Total Protein 7.1 6.4-8.2 GM/DL Albumin 4.3 3.2-4.5 GM/DL Human Chorionic Gonadotropin, Quant [id number] H <5 MIU/ML My Orders Orders - TANIA PALMA Ob Transvaginal [id number] (12/22/18 13:00) Cbc With Automated Diff (12/22/18 13:00) Hcg,Quantitative (12/22/18 13:00) Comprehensive Metabolic Panel (12/22/18 13:00) Vital Signs/I&O 12/22/18 14:18 Temp 98.3 Pulse 81 Resp 12 B/P (MAP) 103/62 (76) Pulse Ox 98 Capillary Refill : Less Than 3 Seconds Blood Pressure Mean: 76 Progress Note : Time: 14:09 Progress Note I have seen and evaluated the patient. I have informed the patient of her laboratory findings and imaging studies. She agrees with plan of care, plans for discharge, return precautions were given. Diagnostic Imaging Diagonstic Imaging: Ultrasound Comments NAME: EKATERINA MATHIAS [facility] REC#: [id number] PHYSICIAN: TANIA PALMA CC: SUKHI PALMA STEPHEN D MD Page 1 of 1 RADIOLOGY REPORT [facility]. [place], [place] CC: SUKHI PALMA STEPHEN D MD Page 1 of 1 RADIOLOGY REPORT NAME: EKATERINA MATHIAS [facility] REC#: [id number] PT STATUS: DEP ER : 1995 PHYSICIAN: TANIA PALMA ADMIT DATE: 12/22/18/ER Signed Date of Exam: 12/22/18 US OB TRANSVAGINAL [id number] INDICATION: Vaginal bleeding. COMPARISON: No prior studies are available for comparison. FINDINGS: The uterus measures 6.9 x 4.1 cm. There is an intrauterine gestational sac containing a yolk sac. The gestational sac size is consistent with approximately 6 weeks 3 days. No pole is seen at this time. The adnexa are unremarkable. No adnexal mass or free fluid is seen. IMPRESSION: There is an intrauterine gestational sac of approximately 6 weeks gestation; however, no pole is seen at this time. While this could be owing to very early , a blighted ovum could not be excluded. Continued followup with serial beta-hCG levels and/or ultrasound would be recommended to evaluate for viability. Dictated by: Dictated on workstation # [id number] Dict: 12/22/18 1415 Trans: 12/22/18 1535 Interpreted by: FIOR RAYMUNDO MD Electronically signed by: FIOR RAYMUNDO MD 12/22/18 1535 Reviewed: Reviewed by Me Departure Impression Primary Impression: Threatened miscarriage in early Disposition: 01 HOME, SELF-CARE Condition: Stable/Unchanged Departure-Patient Inst. Decision time for Depature: 14:09 Referrals: TOBY OH DO [facility] (PCP) Primary Care Physician Patient Instructions: Threatened Miscarriage, Bleeding With (DC) Add. Discharge Instructions: Call today to schedule an appointment for follow-up at [facility]. You may use Tylenol as directed by the bottle for pain relief. Continue your vitamins as discussed yesterday. Return back to the emergency room for worsening pain, vaginal bleeding, or any other concerns or worsening conditions as needed. All discharge instructions reviewed with patient and/or family. Voiced understanding. TANIA PALMA Dec 22, 2018 13:09
[2018-12-22 13:21] LABS: BASOPHILS % (AUTO) 0 % (0-10); EOSINOPHILS % (AUTO) 0 % (0-10); HEMATOCRIT 40 % (35-52); HEMOGLOBIN 13.5 G/DL (11.5-16.0); LYMPHOCYTES # (AUTO) 1.9 X 10^3 (1.0-4.0); LYMPHOCYTES % (AUTO) 24 % (12-44); MEAN CORPUSCULAR HEMOGLOBIN 31 PG (25-34); MEAN CORPUSCULAR HGB CONC 34 G/DL (32-36); MEAN CORPUSCULAR VOLUME 91 FL (80-99); MEAN PLATELET VOLUME 9.9 FL (7.4-10.4); MONOCYTES # (AUTO) 0.5 X 10^3 (0.0-1.0); MONOCYTES % (AUTO) 7 % (0-12); NEUTROPHILS # (AUTO) 5.4 X 10^3 (1.8-7.8); NEUTROPHILS % (AUTO) 69 % (42-75); PLATELET COUNT 238 10^3/uL (130-400); RED CELL DISTRIBUTION WIDTH 12.3 % (10.0-14.5); WHITE BLOOD COUNT 7.9 10^3/uL (4.3-11.0)
[2018-12-22 13:35] LABS: ALANINE AMINOTRANSFERASE 12 U/L (0-55); ALBUMIN 4.3 GM/DL (3.2-4.5); ALKALINE PHOSPHATASE 54 U/L (40-136); BILIRUBIN,TOTAL 1.7 MG/DL (0.1-1.0); BUN/CREATININE RATIO 9; CALCIUM 9.6 MG/DL (8.5-10.1); CARBON DIOXIDE 22 MMOL/L (21-32); CHLORIDE 105 MMOL/L (98-107); CREATININE SERUM 0.67 MG/DL (0.60-1.30); GFR ESTIMATED > 60; GLUCOSE 70 MG/DL (70-105); POTASSIUM 3.8 MMOL/L (3.6-5.0); SODIUM 134 MMOL/L (135-145); TOTAL PROTEIN 7.1 GM/DL (6.4-8.2)
[2018-12-22 14:18] VITALS: BP 103/62
--- NOTE | 2018-12-22 14:19 | Diagnostic Imaging Report ---
INDICATION: Vaginal bleeding. COMPARISON: No prior studies are available for comparison. FINDINGS: The uterus measures 6.9 x 4.1 cm. There is an intrauterine gestational sac containing a yolk sac. The gestational sac size is consistent with approximately 6 weeks 3 days. No pole is seen at this time. The adnexa are unremarkable. No adnexal mass or free fluid is seen. IMPRESSION: There is an intrauterine gestational sac of approximately 6 weeks gestation; however, no pole is seen at this time. While this could be owing to very early , a blighted ovum could not be excluded. Continued followup with serial beta-hCG levels and/or ultrasound would be recommended to evaluate for viability. Dictated by: Dictated on workstation # [id number]
== END 2018-12-22 14:18 | disposition home or self-care (01) ==
LOC: EDUNIT# 12:41 → ER 12:42
DX: O20.0 Threatened abortion (principal); Z3A.01 Less than 8 weeks gestation of pregnancy; Z87.19 Personal history of other diseases of the digestive system
CPT/HCPCS: 36415; 76817; 80053; 84702; 85025

== ENCOUNTER 2018-12-26 13:09 | Emergency (ER) | payer SELFPAY ==
[~2018-12-26] VITALS: Ht 167.6 cm; Wt 88.0 kg
[2018-12-26] MEDS ORDERED: NS IV 1000 ML 1,000 ML IV SCH (13:24)
[2018-12-26] MEDS ORDERED: ONDANSETRON 4 MG/2 ML (SDV) Z0FRAN IVP ONE (13:30)
[2018-12-26 13:43] LABS: CLARITY,URINE CLEAR; COLOR,URINE YELLOW; GLUCOSE, URINE (UA) NEGATIVE (NEGATIVE); KETONES,URINE 4+ (NEGATIVE); LEUKOCYTE ESTERASE ,URINE 1+ (NEGATIVE); NITRITE,URINE NEGATIVE (NEGATIVE); PH,URINE 6 (5-9); PROTEIN,URINE 2+ (NEGATIVE); UROBILINOGEN,URINE 4 MG/DL (NORMAL)
[2018-12-26 14:02] LABS: BILIRUBIN,URINE 1+ (NEGATIVE)
[2018-12-26 14:03] LABS: BACTERIA,URINE FEW /HPF; WBC,URINE 0-2 /HPF
--- NOTE | 2018-12-26 14:05 | ED GI ---
General Chief Complaint: General Problems/Pain Stated Complaint: ;WEAKNESS;NAUSEA Nursing Triage Note: PT AMB TO RM 8 WITH COMPLAINT OF , NAUSEA, VOMTING, AND UNABLE TO KEEP ANYTHING DOWN. PT STATES SHE IS WEAK AND NAUSEOUS ALL THE TIME. PT WAS SEEN ON 12/21/18 AND PRESCRIBED ZOFRAN. STATES ZOFRAN ISNT WORKING. Sepsis Screen: No Definite Risk History of Present Illness Date Seen by Provider: Dec 26, 2018 Time Seen by Provider: 13:15 Initial Comments 23 -year-old -Monegasque female presents for nausea and vomiting. Her for her third visit since 12/21/18 related to . Patient reports she last vomited at 0600 this am. She has not taken her Zofran for 2 days. She reports the Zofran works, but for a limited time. She reports nausea, no abdominal pain or vaginal bleeding. No other complaints. She did not seek care from her OB doctor or [employer] [facility] today. She saw her OB doctor 2 days ago. Timing/Duration: 12-24 Hours, Intermittent Modifying Factors: Improves With Lying down Associated Symptoms: Nausea/Vomiting Allergies and Home Medications Allergies Coded Allergies: No Known Drug Allergies (Unverified , 10/13/17) Home Medications Benzonatate 200 Mg Capsule, 200 MG PO Q8H PRN for COUGH Prescribed by: ANDI DENG on 10/13/17 1238 Cephalexin 500 Mg Capsule, 500 MG PO 3 TIMES A DAY 3 TIME Prescribed by: RAVINDRA FERGUSON on 01/05/18 1758 Cephalexin 500 Mg Capsule, 500 MG PO TID Prescribed by: DONIS LEMUS on 12/26/18 1423 Guaifenesin/Pseudoephedrne HCl 1 Each Tab.er.12h, 1 EACH PO Q12H PRN for CONGESTION Prescribed by: ANDI DENG on 10/13/17 1238 Ondansetron 8 Mg Tab.rapdis, 8 MG PO Q6H PRN for NAUSEA/VOMITING-1ST LINE Prescribed by: ANDI DENG on 10/13/17 1238 Ondansetron HCl 4 Mg Tab, 4 MG PO Q4H Prescribed by: TANIA PALMA on 12/21/18 1220 Sucralfate 1 Gm Tablet, 1 GM PO QID PRN for 1 hour before meals Prescribed by: TANIA PALMA on 07/23/18 1322 Patient Home Medication List Home Medication List Reviewed: Yes Review of Systems Review of Systems Constitutional: no symptoms reported, see HPI Gastrointestinal: Abdomen Distended, Nausea, Poor Appetite, Poor Fluid Intake All Other Systems Reviewed Negative Unless Noted: Yes Past Fmqwjyw-Jpzamh-Brlxlr Hx Past Med/Social Hx: Reviewed Nursing Past Med/Soc Hx Patient Social History Alcohol Use: Occasionally Uses Number of Drinks Today: AA Alcohol Beverage of Choice: Beer Recreational Drug Use: No Smoking Status: Never a Smoker 2nd Hand Smoke Exposure: No Recent Foreign Travel: No Contact w/Someone Who Travel: No Recent Infectious Disease Expo: No Recent Hopitalizations: No Immunizations Up To Date Tetanus Booster (TDap): Unknown PED Vaccines UTD: Yes Seasonal Allergies Seasonal Allergies: No Past Medical History Surgeries: No Respiratory: No Cardiac: No Neurological: No Sexually Transmitted Disease: No HIV/AIDS: No Genitourinary: No Gastrointestinal: Yes Ulcer Musculoskeletal: No Endocrine: No HEENT: No Hearing Impairment: Denies Cancer: No Psychosocial: No Integumentary: No Blood Disorders: No Adverse Reaction/Blood Tranf: No Family Medical History No Pertinent Family Hx Physical Exam Vital Signs Vital Signs - First Documented 12/26/18 13:13 Temp 98.1 Pulse 78 Resp 16 B/P (MAP) 111/66 (81) Pulse Ox 98 O2 Delivery Room Air Capillary Refill : Less Than 3 Seconds Height/Weight/BMI Height: 5'6.00" Weight: 194lbs. oz. 87.452005mb; 28.12 BMI Method:Stated General Appearance: WD/WN, no apparent distress HEENT: PERRL/EOMI, normal ENT inspection, TMs normal, pharynx normal, other ( oral mucosa pink and moist) Respiratory: chest non-tender, lungs clear, normal breath sounds Cardiovascular: normal peripheral pulses Gastrointestinal: normal bowel sounds, non tender, soft Extremities: normal range of motion, non-tender, normal inspection, no pedal edema, normal capillary refill Neurologic/Psychiatric: no motor/sensory deficits, alert, normal mood/affect, oriented x 3 Skin: normal color, warm/dry Progress/Results/Core Measures Results/Orders Lab Results Laboratory Tests Test 12/26/18 13:28 12/26/18 13:34 Range/Units Urine Color YELLOW Urine Clarity CLEAR Urine pH 6 5-9 Urine Specific [place] 1.025 H 1.016-1.022 Urine Protein 2+ H NEGATIVE Urine Glucose (UA) NEGATIVE NEGATIVE Urine Ketones 4+ H NEGATIVE Urine Nitrite NEGATIVE NEGATIVE Urine Bilirubin 1+ H NEGATIVE Urine Urobilinogen 4 H NORMAL MG/DL Urine Leukocyte Esterase 1+ H NEGATIVE Urine RBC (Auto) NEGATIVE NEGATIVE Urine RBC NONE /HPF Urine WBC 0-2 /HPF Urine Squamous Epithelial Cells 10-25 H /HPF Urine Crystals NONE /LPF Urine Bacteria FEW H /HPF Urine Casts NONE /LPF Urine Mucus LARGE H /LPF Urine Culture Indicated YES Glucometer 76 70-110 MG/DL My Orders Orders - DONIS LEMUS Ed Iv/Invasive Line Start (12/26/18 13:24) Ns Iv 1000 Ml (Sodium Chloride 0.9%) (12/26/18 13:24) Clear Liquid (12/26/18 Lunch) Ua Culture If Indicated (12/26/18 13:24) Accucheck Stat ONCE (12/26/18 13:24) Ondansetron Injection (Zofran Injectio (12/26/18 13:30) Urine Culture (12/26/18 13:28) Medications Given in ED Current Medications Medications Dose Ordered Sig/Pili Route Start Time Stop Time Status Last Admin Dose Admin Ondansetron HCl 8 mg ONCE ONCE IVP 12/26/18 13:30 12/26/18 13:31 DC 12/26/18 13:45 8 MG Vital Signs/I&O 12/26/18 12/26/18 13:13 15:16 Temp 98.1 Pulse 78 76 Resp 16 19 B/P (MAP) 111/66 (81) 110/80 (90) Pulse Ox 98 100 O2 Delivery Room Air Room Air Blood Pressure Mean: 81 FSBG Bedside Testing Finger Stick Blood Glucose: 76 Blood Glucose Action Taken: Dr lemus notified Progress Progress Note : Time: 13:15 Progress Note Patient seen and evaluated, will obtain labs, normal saline 1 L IV, Zofran 8 mg IV, Accu-Chek 76 1400 patient has had no vomiting, she reports her nausea to be slightly improved. Patient taking ice chips. 1430 labs essentially normal, UTI noted on UA. We'll order clear liquid tray. 1505 No vomiting throughout stay. Ate jello, ice chips and drank sprite. Charge instructions and return precautions reviewed with the patient. Stressed the importance of a bland diet and small frequent meals. Encouraged she was hydrated and take medication for the UTI. She is to follow up with her OB doctor. Departure Impression Primary Impression: Nausea and vomiting during Additional Impressions: First trimester UTI (urinary tract infection) Qualified Codes: N30.00 - Acute cystitis without hematuria Disposition: HOME, SELF-CARE Condition: Improved Departure-Patient Inst. Decision time for Depature: 14:15 Referrals: [facility] (PCP/Family) Primary Care Physician Patient Instructions: Nausea and Vomiting of (DC), Urinary Tract Infection, Adult (DC) Add. Discharge Instructions: Eat small frequent meals, bland foods. Empty bladder every 2 hours while awake. Take antibiotic for UTI as prescribed Take Zofran every 6-8 hours as needed for nausea. Follow-up with your OB doctor if symptoms are not improving or worsen. Most important that you stay hydrated, take sips of water, sprite, or thomas mello. Continue to take your vitamin daily. Drink 1 cup of cranberry juice or eat 1 cup of fresh blueberries daily. You can be seen at [facility], [facility] or by your OB for non- emergent problems. Return to emergency department for fever greater than 101, severe abdominal pain, vaginal bleeding, or new problems. All discharge instructions reviewed with patient and/or family. Voiced understanding. Scripts Cephalexin (Keflex) 500 Mg Capsule 500 MG PO TID, #15 CAP 0 Refills Prov: DONIS LEMUS 12/26/18 Copy Copies To 1: RACHEL DIALLO MD Copies To 2: FREDY BLANDON MD, AMY ARNP Dec 26, 2018 14:05
[2018-12-26] MEDS ORDERED: CEPH-507 PO (14:23)
[2018-12-26 15:16] VITALS: BP 110/80
== END 2018-12-26 15:16 | disposition home or self-care (01) ==
LOC: EDUNIT# 13:09 → ER 13:10
DX: O23.41 Unspecified infection of urinary tract in pregnancy, first trimester (principal); Z87.19 Personal history of other diseases of the digestive system; Z3A.00 Weeks of gestation of pregnancy not specified
CPT/HCPCS: 81000; 82962; 87088; 96374

== ENCOUNTER 2018-12-29 02:21 | Emergency (ER) | payer SELFPAY ==
[~2018-12-29] VITALS: Ht 170.2 cm; Wt 88.0 kg
[2018-12-29] MEDS ORDERED: D5 NS 1000 ML IV SOLUTION 1,000 ML IV ONE (02:57)
--- NOTE | 2018-12-29 03:03 | ED GU-Female ---
General Chief Complaint: SECTION HAND Stated Complaint: THROWING UP, CRAMPING Nursing Triage Note: PT AMB TO ROOM #4 W/O DIFFICULTY. A&OX4. C/O LOWER ABD CRAMPING AND VAGINAL BLEEDING. PT REPORTS SHE WAS SEEN @ [facility] AND THIS ED WITHIN THE PAST WEEK D/T THREATENED MISCARRIAGE. REPORTS @ APPROX 0100 NAUSEA, VOMITING, ABD CRAMPING, AND VAGINAL BLEEDING BEGAN. REPORTS TO HAVE PASSED DARK RED BLOOD CLOTS. REPORTS TO HAVE TAKEN ZOFAN FOR NAUSEA WITH NO RELIEF. PT NOTED TO BE TEARFUL. Nursing Sepsis Screen: No Definite Risk Source: patient Exam Limitations: no limitations History of Present Illness Date Seen by Provider: Dec 29, 2018 Time Seen by Provider: 02:46 Initial Comments Here with report of nausea and vomiting all his lower abdominal cramping and vaginal bleeding. She was found to be last week. She did have ultrasound done which showed likely blighted ovum but may be early . Quant was 22,000 at that time. Reports today that she is having vaginal bleeding with clots and nausea and vomiting. She is crying and states that she is just having a difficult time from been so sick over the last week. She also has the concerns related to miscarriage. Does have follow-up set for this Saturday with Dr. Blandon. Denies dysuria or diarrhea. She is currently taking antibiotics for possible urinary tract infection but that culture is negative so this will be stopped. Vomited one time this morning and took her Zofran. She reports that she vomited one time after. Timing/Duration: this morning Severity/Quality: mild, moderate, cramping Location: vaginal, other (epigastric cramping and nausea as well) Radiation: none Activities at Onset: none Sexual [place] History: less than 2 months ago Modifying Factors: Worsens With Eating Associated Symptoms: No fever/chills, No lower back pain; nausea/vomiting; No urinary frequency Allergies and Home Medications Allergies Coded Allergies: No Known Drug Allergies (Unverified , 10/13/17) Home Medications Benzonatate 200 Mg Capsule, 200 MG PO Q8H PRN for COUGH Prescribed by: ANDI DENG on 10/13/17 1238 Cephalexin 500 Mg Capsule, 500 MG PO 3 TIMES A DAY 3 TIME Prescribed by: RAVINDRA FERGUSON on 01/05/18 1758 Cephalexin 500 Mg Capsule, 500 MG PO TID Prescribed by: DONIS LEMUS on 12/26/18 1423 Guaifenesin/Pseudoephedrne HCl 1 Each Tab.er.12h, 1 EACH PO Q12H PRN for CONGESTION Prescribed by: ANDI DENG on 10/13/17 1238 Ondansetron 8 Mg Tab.rapdis, 8 MG PO Q6H PRN for NAUSEA/VOMITING-1ST LINE Prescribed by: ANDI DENG on 10/13/17 1238 Ondansetron HCl 4 Mg Tab, 4 MG PO Q4H Prescribed by: TANIA PALMA on 12/21/18 1220 Sucralfate 1 Gm Tablet, 1 GM PO QID PRN for 1 hour before meals Prescribed by: TANIA PALMA on 07/23/18 1322 Patient Home Medication List Home Medication List Reviewed: Yes Review of Systems Review of Systems Constitutional: see HPI; No chills, No fever Respiratory: no symptoms reported Cardiovascular: no symptoms reported Gastrointestinal: see HPI, abdominal pain, nausea, vomiting Genitourinary: see HPI : Yes Musculoskeletal: no symptoms reported Psychiatric/Neurological: See HPI, Anxiety; Denies Weakness Past Sztoonb-Erfljt-Wmuuqq Hx Past Med/Social Hx: Reviewed Nursing Past Med/Soc Hx Patient Social History Alcohol Use: Occasionally Uses Alcohol Beverage of Choice: Beer Recreational Drug Use: No Smoking Status: Never a Smoker 2nd Hand Smoke Exposure: No Recent Foreign Travel: No Contact w/Someone Who Travel: No Recent Infectious Disease Expo: No Recent Hopitalizations: No Immunizations Up To Date Tetanus Booster (TDap): Unknown PED Vaccines UTD: Yes Seasonal Allergies Seasonal Allergies: No Past Medical History Surgeries: No Respiratory: No Cardiac: No Neurological: No Sexually Transmitted Disease: No HIV/AIDS: No Genitourinary: No Gastrointestinal: Yes Ulcer Musculoskeletal: No Endocrine: No HEENT: No Hearing Impairment: Denies Cancer: No Psychosocial: No Integumentary: No Blood Disorders: No Adverse Reaction/Blood Tranf: No Family Medical History Reviewed Nursing Family Hx No Pertinent Family Hx Physical Exam Vital Signs Vital Signs - First Documented 12/29/18 02:45 Temp 98.3 Pulse 75 Resp 18 B/P (MAP) 118/77 (91) Pulse Ox 98 O2 Delivery Room Air Capillary Refill : Less Than 3 Seconds Height, Weight, BMI Height: 5'7.00" Weight: 194lbs. oz. 87.931171tt; 28.12 BMI Method:Stated General Appearance: WD/WN, no apparent distress Neck: full range of motion, supple Cardiovascular: regular rate, rhythm, no murmur Respiratory: lungs clear, normal breath sounds Gastrointestinal: soft, tenderness (mild epigastric) Back: normal inspection, no CVA tenderness, no vertebral tenderness Extremities: normal range of motion, non-tender, normal inspection Neurologic/Psychiatric: alert, oriented x 3 Skin: normal color, warm/dry Progress/Results/Core Measures Suspected Sepsis Recent Fever Within 48 Hours: No Infection Criteria Present: None New/Unexplained Altered Menta: No Sepsis Screen: No Definite Risk SIRS Temperature:98.3 Pulse: 75 Respiratory Rate: 18 Laboratory Tests 12/29/18 03:00: White Blood Count 9.6 Blood Pressure 118 /77 Mean: 91 Laboratory Tests 12/29/18 03:00: Creatinine 0.70, Platelet Count 229 Results/Orders Lab Results Laboratory Tests Test 12/29/18 03:00 Range/Units White Blood Count 9.6 4.3-11.0 10^3/uL Red Blood Count 4.46 4.35-5.85 10^6/uL Hemoglobin 13.8 11.5-16.0 G/DL Hematocrit 40 35-52 % Mean Corpuscular Volume 89 80-99 FL Mean Corpuscular Hemoglobin 31 25-34 PG Mean Corpuscular Hemoglobin Concent 35 32-36 G/DL Red Cell Distribution Width 11.9 10.0-14.5 % Platelet Count 229 130-400 10^3/uL Mean Platelet Volume 10.7 H 7.4-10.4 FL Neutrophils (%) (Auto) 68 42-75 % Lymphocytes (%) (Auto) 21 12-44 % Monocytes (%) (Auto) 9 0-12 % Eosinophils (%) (Auto) 1 0-10 % Basophils (%) (Auto) 0 0-10 % Neutrophils # (Auto) 6.6 1.8-7.8 X 10^3 Lymphocytes # (Auto) 2.1 1.0-4.0 X 10^3 Monocytes # (Auto) 0.9 0.0-1.0 X 10^3 Eosinophils # (Auto) 0.1 0.0-0.3 10^3/uL Basophils # (Auto) 0.0 0.0-0.1 10^3/uL Sodium Level 136 135-145 MMOL/L Potassium Level 3.3 L 3.6-5.0 MMOL/L Chloride Level 102 98-107 MMOL/L Carbon Dioxide Level 20 L 21-32 MMOL/L Anion Gap 14 5-14 MMOL/L Blood Urea Nitrogen 5 L 7-18 MG/DL Creatinine 0.70 0.60-1.30 MG/DL Estimat Glomerular Filtration Rate > 60 BUN/Creatinine Ratio 7 Glucose Level 74 70-105 MG/DL Calcium Level 9.9 8.5-10.1 MG/DL Human Chorionic Gonadotropin, Quant 71916 H <5 MIU/ML My Orders Orders - HEATHER WILLARD MD Basic Metabolic Panel (12/29/18 02:57) Cbc With Automated Diff (12/29/18 02:57) Hcg,Quantitative (12/29/18 02:57) Ed Iv/Invasive Line Start (12/29/18 02:57) D5 Ns 1000 Ml Iv Solution (Dextrose 5%/0 (12/29/18 02:57) Ondansetron Injection (Zofran Injectio (12/29/18 03:15) Promethazine Injection (Phenergan Injec (12/29/18 03:49) Promethazine Injection (Phenergan Injec (12/29/18 03:50) Hydrocodone/Apap 5/325 Tablet (Lortab 5 (12/29/18 04:15) Medications Given in ED Current Medications Medications Dose Ordered Sig/Ipli Route Start Time Stop Time Status Last Admin Dose Admin Acetaminophen/ Hydrocodone Bitart 1 tab ONCE ONCE PO 12/29/18 04:15 12/29/18 04:16 DC 12/29/18 04:18 1 TAB Dextrose/Sodium Chloride 1,000 ml @ 0 mls/hr Q0M ONCE IV 12/29/18 02:57 12/29/18 02:58 DC 12/29/18 03:09 0 MLS/HR Ondansetron HCl 4 mg ONCE ONCE IVP 12/29/18 03:15 12/29/18 03:16 DC 12/29/18 03:09 4 MG Vital Signs/I&O 12/29/18 02:45 Temp 98.3 Pulse 75 Resp 18 B/P (MAP) 118/77 (91) Pulse Ox 98 O2 Delivery Room Air Capillary Refill : Less Than 3 Seconds Blood Pressure Mean: 91 Progress Note : Progress Note Seen and evaluated. IV and labs ordered. D5NS 1 L bolus. Zofran 4 mg IV ordered. Monitor patient. Phenergan 25 mg IV for persistent nausea. Quant has tripled since 12/22/18. Given her history of clots and findings on ultrasound it is likely that this is miscarriage although will need further evaluation. She does have appointment on Saturday this week. I will send a copy of the chart the clinic. 0401: Doing a little better. Discharged home with return precautions. Patient verbalize understanding instructions and agreement with plan. Departure Impression Primary Impression: Threatened miscarriage in early Disposition: HOME, SELF-CARE Condition: Stable Departure-Patient Inst. Decision time for Depature: 04:02 Referrals: [facility] (PCP/Family) Primary Care Physician Patient Instructions: Threatened Miscarriage, Bleeding With (DC) Add. Discharge Instructions: All discharge instructions reviewed with patient and/or family. Voiced understanding. Clear liquid diet for the next 24 hours and advance as tolerated. You may use crackers or toast or something very light if needed for food. Follow-up on Saturday with the clinic as scheduled. Continue nausea medicines as previously prescribed. Return for worsening, fever, vomiting, weakness, breathing problems , bleeding greater than 2 pads per hour for more than 2 hours or other concerns as needed. Copy Copies To 1: FREDY BLANDON MD Copies To 2: RACHEL DIALLO MD, TIMOTHY D MD Dec 29, 2018 03:03
[2018-12-29 03:10] LABS: BASOPHILS % (AUTO) 0 % (0-10); EOSINOPHILS # (AUTO) 0.1 10^3/uL (0.0-0.3); EOSINOPHILS % (AUTO) 1 % (0-10); HEMATOCRIT 40 % (35-52); HEMOGLOBIN 13.8 G/DL (11.5-16.0); LYMPHOCYTES # (AUTO) 2.1 X 10^3 (1.0-4.0); LYMPHOCYTES % (AUTO) 21 % (12-44); MEAN CORPUSCULAR HEMOGLOBIN 31 PG (25-34); MEAN CORPUSCULAR HGB CONC 35 G/DL (32-36); MEAN CORPUSCULAR VOLUME 89 FL (80-99); MEAN PLATELET VOLUME 10.7 FL (7.4-10.4); MONOCYTES # (AUTO) 0.9 X 10^3 (0.0-1.0); MONOCYTES % (AUTO) 9 % (0-12); NEUTROPHILS # (AUTO) 6.6 X 10^3 (1.8-7.8); NEUTROPHILS % (AUTO) 68 % (42-75); PLATELET COUNT 229 10^3/uL (130-400); RED CELL DISTRIBUTION WIDTH 11.9 % (10.0-14.5); WHITE BLOOD COUNT 9.6 10^3/uL (4.3-11.0)
[2018-12-29] MEDS ORDERED: ONDANSETRON 4 MG/2 ML (SDV) Z0FRAN IVP ONE (03:15)
[2018-12-29 03:26] LABS: BUN/CREATININE RATIO 7; CALCIUM 9.9 MG/DL (8.5-10.1); CARBON DIOXIDE 20 MMOL/L (21-32); CHLORIDE 102 MMOL/L (98-107); GFR ESTIMATED > 60; GLUCOSE 74 MG/DL (70-105); POTASSIUM 3.3 MMOL/L (3.6-5.0); SODIUM 136 MMOL/L (135-145)
[2018-12-29] MEDS ORDERED: PROMETHAZINE INJ 25 MG/ML (PHENERGAN) AMP IVP STA ×2 (03:49→03:50)
[2018-12-29] MEDS ORDERED: HYDROcodone/APAP 5 MG/325 MG (LORTAB) TAB PO ONE (04:15)
[2018-12-29 04:30] VITALS: BP 100/64
== END 2018-12-29 04:30 | disposition home or self-care (01) ==
LOC: EDUNIT# 02:21 → ER 02:23
DX: O20.0 Threatened abortion (principal); Z87.19 Personal history of other diseases of the digestive system; Z3A.01 Less than 8 weeks gestation of pregnancy
CPT/HCPCS: 36415; 80048; 84702; 85025

== ENCOUNTER 2018-12-31 16:38 | Emergency (ER) | payer SELFPAY ==
[~2018-12-31] VITALS: Ht 170.2 cm; Wt 85.3 kg
[2018-12-31] MEDS ORDERED: fentaNYL INJECTION 100 MCG/2 ML AMP IVP ONE (17:30)
--- NOTE | 2018-12-31 17:41 | ED GU-Female ---
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 PT STATES SHE SAW OB TODAY AND TOLD HER DUE DATE IS 08/17/19. PT IS 7 WEEKS, 2 DAYS ALONG. PT IS COMPLAINING OF PAIN IN VAGINA AND RECTAL AREA. Nursing Sepsis Screen: No Definite Risk Source: patient Exam Limitations: no limitations History of Present Illness Date Seen by Provider: Dec 31, 2018 Time Seen by Provider: 17:40 Initial Comments To ER with reports of continued vaginal bleeding and cramping. She is about 7 weeks 2 days gestation, .Multiple visits since December 21 for this complaint. Timing/Duration: constant Severity/Quality: moderate Location: unknown Radiation: none Activities at Onset: none Allergies and Home Medications Allergies Coded Allergies: No Known Drug Allergies (Unverified , 10/13/17) Home Medications Benzonatate 200 Mg Capsule, 200 MG PO Q8H PRN for COUGH Prescribed by: ANDI DENG on 10/13/17 1238 Cephalexin 500 Mg Capsule, 500 MG PO 3 TIMES A DAY 3 TIME Prescribed by: RAVINDRA FERGUSON on 01/05/18 1758 Cephalexin 500 Mg Capsule, 500 MG PO TID Prescribed by: DONIS LEMUS on 12/26/18 1423 Guaifenesin/Pseudoephedrne HCl 1 Each Tab.er.12h, 1 EACH PO Q12H PRN for CONGESTION Prescribed by: ANDI DENG on 10/13/17 1238 Ondansetron 8 Mg Tab.rapdis, 8 MG PO Q6H PRN for NAUSEA/VOMITING-1ST LINE Prescribed by: ANDI DENG on 10/13/17 1238 Ondansetron HCl 4 Mg Tab, 4 MG PO Q4H Prescribed by: TANIA PALMA on 12/21/18 1220 Sucralfate 1 Gm Tablet, 1 GM PO QID PRN for 1 hour before meals Prescribed by: TANIA PALMA on 07/23/18 1322 Patient Home Medication List Home Medication List Reviewed: Yes Review of Systems Review of Systems Constitutional: see HPI EENTM: see HPI Respiratory: no symptoms reported Cardiovascular: no symptoms reported Genitourinary: no symptoms reported Musculoskeletal: no symptoms reported Skin: no symptoms reported Psychiatric/Neurological: No Symptoms Reported Endocrine: No Symptoms Reported Past Wmlhgda-Haxtxr-Lsuzoy Hx Patient Social History Alcohol Use: Occasionally Uses Number of Drinks Today: AA Alcohol Beverage of Choice: Beer Recreational Drug Use: No Smoking Status: Never a Smoker 2nd Hand Smoke Exposure: No Recent Foreign Travel: No Contact w/Someone Who Travel: No Recent Infectious Disease Expo: No Recent Hopitalizations: No Immunizations Up To Date Tetanus Booster (TDap): Unknown PED Vaccines UTD: Yes Seasonal Allergies Seasonal Allergies: No Past Medical History Surgeries: No Respiratory: No Cardiac: No Neurological: No Sexually Transmitted Disease: No HIV/AIDS: No Genitourinary: No Gastrointestinal: Yes Ulcer Musculoskeletal: No Endocrine: No HEENT: No Hearing Impairment: Denies Cancer: No Psychosocial: No Integumentary: No Blood Disorders: No Adverse Reaction/Blood Tranf: No Family Medical History No Pertinent Family Hx Physical Exam Vital Signs Vital Signs - First Documented 12/31/18 12/31/18 16:43 18:45 Temp 98.2 Pulse 84 Resp 22 B/P (MAP) 106/62 (77) Pulse Ox 99 O2 Delivery Room Air Capillary Refill : Less Than 3 Seconds Height, Weight, BMI Height: 5'7.00" Weight: 188lbs. oz. 85.003169nz; 28.12 BMI Method:Stated General Appearance: WD/WN, no apparent distress HEENT: PERRL/EOMI, normal ENT inspection Neck: non-tender, full range of motion Respiratory: no respiratory distress, no accessory muscle use Gastrointestinal: normal bowel sounds, non tender Extremities: normal range of motion, non-tender Neurologic/Psychiatric: alert, normal mood/affect, oriented x 3 Skin: normal color, warm/dry Progress/Results/Core Measures Suspected Sepsis Recent Fever Within 48 Hours: No Infection Criteria Present: None New/Unexplained Altered Menta: No Sepsis Screen: No Definite Risk SIRS Temperature: Pulse: 84 Respiratory Rate: 22 Laboratory Tests 12/31/18 17:36: White Blood Count 10.4 Blood Pressure 106 /62 Mean: 77 Laboratory Tests 12/31/18 17:36: Creatinine 0.63, Platelet Count 220, Total Bilirubin 1.4H Results/Orders Lab Results Laboratory Tests Test 12/31/18 17:36 Range/Units White Blood Count 10.4 4.3-11.0 10^3/uL Red Blood Count 4.62 4.35-5.85 10^6/uL Hemoglobin 14.0 11.5-16.0 G/DL Hematocrit 41 35-52 % Mean Corpuscular Volume 89 80-99 FL Mean Corpuscular Hemoglobin 30 25-34 PG Mean Corpuscular Hemoglobin Concent 34 32-36 G/DL Red Cell Distribution Width 12.0 10.0-14.5 % Platelet Count 220 130-400 10^3/uL Mean Platelet Volume 10.8 H 7.4-10.4 FL Neutrophils (%) (Auto) 75 42-75 % Lymphocytes (%) (Auto) 18 12-44 % Monocytes (%) (Auto) 6 0-12 % Eosinophils (%) (Auto) 1 0-10 % Basophils (%) (Auto) 0 0-10 % Neutrophils # (Auto) 7.8 1.8-7.8 X 10^3 Lymphocytes # (Auto) 1.9 1.0-4.0 X 10^3 Monocytes # (Auto) 0.7 0.0-1.0 X 10^3 Eosinophils # (Auto) 0.1 0.0-0.3 10^3/uL Basophils # (Auto) 0.0 0.0-0.1 10^3/uL Sodium Level 138 135-145 MMOL/L Potassium Level 3.4 L 3.6-5.0 MMOL/L Chloride Level 104 98-107 MMOL/L Carbon Dioxide Level 21 21-32 MMOL/L Anion Gap 13 5-14 MMOL/L Blood Urea Nitrogen 5 L 7-18 MG/DL Creatinine 0.63 0.60-1.30 MG/DL Estimat Glomerular Filtration Rate > 60 BUN/Creatinine Ratio 8 Glucose Level 74 70-105 MG/DL Calcium Level 10.1 8.5-10.1 MG/DL Corrected Calcium 9.8 8.5-10.1 MG/DL Total Bilirubin 1.4 H 0.1-1.0 MG/DL Aspartate Amino Transf (AST/SGOT) 13 5-34 U/L Alanine Aminotransferase (ALT/SGPT) 11 0-55 U/L Alkaline Phosphatase 60 40-136 U/L Total Protein 7.9 6.4-8.2 GM/DL Albumin 4.4 3.2-4.5 GM/DL Human Chorionic Gonadotropin, Quant 16139 H <5 MIU/ML My Orders Orders - LALO PATEL ASSEMBLER ADJUSTER Cbc With Automated Diff (12/31/18 17:25) Comprehensive Metabolic Panel (12/31/18 17:25) Hcg,Quantitative (12/31/18 17:25) Fentanyl Injection (Sublimaze Injection (12/31/18 17:30) Vital Signs/I&O 12/31/18 12/31/18 16:43 18:45 Temp 98.2 Pulse 84 62 Resp 22 18 B/P (MAP) 106/62 (77) 95/50 (65) Pulse Ox 99 98 O2 Delivery Room Air Room Air Capillary Refill : Less Than 3 Seconds Blood Pressure Mean: 77 Departure Impression Primary Impression: Threatened miscarriage in early Disposition: 01 HOME, SELF-CARE Condition: Stable Departure-Patient Inst. Decision time for Depature: 18:05 Referrals: FREDY BLANDON MD (PCP/Family) Primary Care Physician Patient Instructions: Threatened Miscarriage Add. Discharge Instructions: 1. Call Dr. Rome tomorrow to make a point to be seen for follow-up 2. Return to ER for any concerns All discharge instructions reviewed with patient and/or family. Voiced understanding. LALO PATEL ASSEMBLER ADJUSTER Dec 31, 2018 17:41
[2018-12-31 17:44] LABS: BASOPHILS % (AUTO) 0 % (0-10); EOSINOPHILS # (AUTO) 0.1 10^3/uL (0.0-0.3); EOSINOPHILS % (AUTO) 1 % (0-10); HEMATOCRIT 41 % (35-52); LYMPHOCYTES # (AUTO) 1.9 X 10^3 (1.0-4.0); LYMPHOCYTES % (AUTO) 18 % (12-44); MEAN CORPUSCULAR HEMOGLOBIN 30 PG (25-34); MEAN CORPUSCULAR HGB CONC 34 G/DL (32-36); MEAN CORPUSCULAR VOLUME 89 FL (80-99); MEAN PLATELET VOLUME 10.8 FL (7.4-10.4); MONOCYTES # (AUTO) 0.7 X 10^3 (0.0-1.0); MONOCYTES % (AUTO) 6 % (0-12); NEUTROPHILS # (AUTO) 7.8 X 10^3 (1.8-7.8); NEUTROPHILS % (AUTO) 75 % (42-75); PLATELET COUNT 220 10^3/uL (130-400); WHITE BLOOD COUNT 10.4 10^3/uL (4.3-11.0)
[2018-12-31 18:02] LABS: ALANINE AMINOTRANSFERASE 11 U/L (0-55); ALBUMIN 4.4 GM/DL (3.2-4.5); ALKALINE PHOSPHATASE 60 U/L (40-136); BILIRUBIN,TOTAL 1.4 MG/DL (0.1-1.0); BUN/CREATININE RATIO 8; CALCIUM 10.1 MG/DL (8.5-10.1); CARBON DIOXIDE 21 MMOL/L (21-32); CHLORIDE 104 MMOL/L (98-107); CREATININE SERUM 0.63 MG/DL (0.60-1.30); GFR ESTIMATED > 60; GLUCOSE 74 MG/DL (70-105); POTASSIUM 3.4 MMOL/L (3.6-5.0); SODIUM 138 MMOL/L (135-145); TOTAL PROTEIN 7.9 GM/DL (6.4-8.2)
[2018-12-31 18:45] VITALS: BP 95/50
== END 2018-12-31 18:48 | disposition home or self-care (01) ==
LOC: EDUNIT# 16:38 → ER 16:40
DX: O20.0 Threatened abortion (principal); Z3A.01 Less than 8 weeks gestation of pregnancy; Z87.19 Personal history of other diseases of the digestive system
CPT/HCPCS: 36415; 80053; 84702; 85025

== ENCOUNTER 2019-01-03 16:25 | Emergency (ER) | payer SELFPAY ==
[~2019-01-03] VITALS: Ht 170.2 cm; Wt 85.3 kg
[2019-01-03] MEDS ORDERED: LACTATED RINGERS 1,000 ML IV ONE (16:48)
--- NOTE | 2019-01-03 16:56 | ED GI ---
General Stated Complaint: SENT FROM [facility] FOR FLUIDS,THROWING UP,7WKS Source of Information: Patient Exam Limitations: No Limitations History of Present Illness Date Seen by Provider: Jan 03, 2019 Time Seen by Provider: 16:38 Initial Comments Patient presents to ER by private conveyance with chief complaint she does not feel it any but he's listening to her. She says she's had vomiting episodes 10 today. She uses Zofran and gets about one or 2 minutes of relief of her nausea. She's been using clear liquid diet along with crackers and other starchy soft foods. She said the only thing she can keep down reliably is just water. Having any abdominal pain fevers chills or diarrhea. She has not picked up the pyridoxine or other medications prescribed by Dr. Blandon her OB provider. She called [facility] today and they told her to come into the clinic and she would get fluids and the medications she had not picked up yet given her however she said she was not able to get there before they closed so she decided just to come here instead. She says she feels like she is getting dehydrated. She does not take any routine medicines nor have any other significant past medical history or abdominal surgeries. She is at 17 weeks 5 days based on her ultrasound from 3 days ago. She was also described to have bacterial vaginitis and was put on Flagyl but she only took one tablet 4 days ago. Allergies and Home Medications Allergies Coded Allergies: No Known Drug Allergies (Unverified , 10/13/17) Home Medications Benzonatate 200 Mg Capsule, 200 MG PO Q8H PRN for COUGH Prescribed by: ANDI DENG on 10/13/17 1238 Cephalexin 500 Mg Capsule, 500 MG PO 3 TIMES A DAY 3 TIME Prescribed by: RAVINDRA FERGUSON on 01/05/18 1758 Cephalexin 500 Mg Capsule, 500 MG PO TID Prescribed by: DONIS LEMUS on 12/26/18 1423 Guaifenesin/Pseudoephedrne HCl 1 Each Tab.er.12h, 1 EACH PO Q12H PRN for CONGESTION Prescribed by: ANDI DENG on 10/13/17 1238 Ondansetron 8 Mg Tab.rapdis, 8 MG PO Q6H PRN for NAUSEA/VOMITING-1ST LINE Prescribed by: ANDI DENG on 10/13/17 1238 Ondansetron HCl 4 Mg Tab, 4 MG PO Q4H Prescribed by: TANIA PALMA on 12/21/18 1220 Sucralfate 1 Gm Tablet, 1 GM PO QID PRN for 1 hour before meals Prescribed by: TANIA PALMA on 07/23/18 1322 Patient Home Medication List Home Medication List Reviewed: Yes Review of Systems Review of Systems Constitutional: No chills, No diaphoresis EENTM: No Blurred Vision, No Double Vision Respiratory: Denies Cough, Denies Shortness of Air Cardiovascular: Denies Chest Pain, Denies Edema Gastrointestinal: Denies Constipated, Denies Diarrhea; Nausea; Denies Poor Appetite; Poor Fluid Intake, Vomiting Genitourinary: Denies Burning, Denies Discharge Musculoskeletal: No back pain, No joint pain Past Vgklkvz-Mwekon-Cwiqvq Hx Patient Social History Alcohol Use: Past History Alcohol Beverage of Choice: Beer Recreational Drug Use: No Drug of Choice: history of marijuana Smoking Status: Never a Smoker 2nd Hand Smoke Exposure: No Recent Foreign Travel: No Contact w/Someone Who Travel: No Recent Hopitalizations: No Immunizations Up To Date Tetanus Booster (TDap): Unknown PED Vaccines UTD: Yes Seasonal Allergies Seasonal Allergies: No Past Medical History Surgeries: No Respiratory: No Cardiac: No Neurological: No Sexually Transmitted Disease: No HIV/AIDS: No Genitourinary: No Gastrointestinal: Yes Ulcer Musculoskeletal: No Endocrine: No HEENT: No Hearing Impairment: Denies Cancer: No Psychosocial: No Integumentary: No Blood Disorders: No Adverse Reaction/Blood Tranf: No Family Medical History No Pertinent Family Hx Physical Exam Vital Signs Vital Signs - First Documented 01/03/19 17:01 Temp 98.6 Pulse 92 Resp 18 B/P (MAP) 144/84 (104) Pulse Ox 97 Capillary Refill : Height/Weight/BMI Height: 5'7.00" Weight: 188lbs. oz. 85.908973ef; 28.12 BMI Method:Stated General Appearance: WD/WN, mild distress HEENT: PERRL/EOMI, normal ENT inspection; No pharynx normal (oropharynx and mucosa is mildly to moderately dry) Neck: non-tender, full range of motion, supple, normal inspection Respiratory: no respiratory distress, no accessory muscle use Cardiovascular: normal peripheral pulses, regular rate, rhythm Gastrointestinal: non tender, soft, no organomegaly Neurologic/Psychiatric: alert, normal mood/affect, oriented x 3 Progress/Results/Core Measures Results/Orders Lab Results Laboratory Tests Test 01/03/19 16:50 Range/Units Urine Color YELLOW Urine Clarity SLIGHTLY CLOUDY Urine pH 6 5-9 Urine Specific [place] 1.030 H 1.016-1.022 Urine Protein 2+ H NEGATIVE Urine Glucose (UA) NEGATIVE NEGATIVE Urine Ketones 4+ H NEGATIVE Urine Nitrite NEGATIVE NEGATIVE Urine Bilirubin NEGATIVE NEGATIVE Urine Urobilinogen 1 NORMAL MG/DL Urine Leukocyte Esterase 1+ H NEGATIVE Urine RBC (Auto) NEGATIVE NEGATIVE Urine RBC RARE /HPF Urine WBC RARE /HPF Urine Squamous Epithelial Cells 5-10 /HPF Urine Crystals NONE /LPF Urine Bacteria NEGATIVE /HPF Urine Casts NONE /LPF Urine Mucus NEGATIVE /LPF Urine Culture Indicated NO My Orders Orders - HANNAH LEE Ua Culture If Indicated (01/03/19 16:48) Ed Iv/Invasive Line Start (01/03/19 16:48) Lactated Ringers (Lr 1000 Ml Iv Solution (01/03/19 16:48) Ondansetron Injection (Zofran Injectio (01/03/19 17:00) Diphenhydramine Tablet (Benadryl Tablet) (01/03/19 17:00) Pyridoxine Tablet (Vitamin B-6 Tablet) (01/03/19 17:00) Promethazine Injection (Phenergan Injec (01/03/19 17:45) Medications Given in ED Current Medications Medications Dose Ordered Sig/Pili Route Start Time Stop Time Status Last Admin Dose Admin Diphenhydramine HCl 25 mg ONCE ONCE PO 01/03/19 17:00 01/03/19 17:01 DC 01/03/19 18:42 25 MG Lactated Ringer's 1,000 ml @ 0 mls/hr Q0M ONCE IV 01/03/19 16:48 01/03/19 16:50 DC 01/03/19 17:15 0 MLS/HR Ondansetron HCl 8 mg ONCE ONCE IVP 01/03/19 17:00 01/03/19 17:01 DC 01/03/19 17:15 8 MG Promethazine HCl 25 mg ONCE ONCE IVP 01/03/19 17:45 01/03/19 17:46 DC 01/03/19 17:56 25 MG Pyridoxine HCl 50 mg ONCE ONCE PO 01/03/19 17:00 01/03/19 17:01 DC 01/03/19 18:42 50 MG Vital Signs/I&O 01/03/19 17:01 Temp 98.6 Pulse 92 Resp 18 B/P (MAP) 144/84 (104) Pulse Ox 97 Progress Progress Note : Time: 16:57 Progress Note Establish an IV and give her a liter of LR, 8 mg of Zofran and some Benadryl. If we have pyridoxine we'll give her that as well. We have strongly encouraged her to follow up with her OB provider to help her manage her first trimester emesis. We have strongly reinforced that she take the medications as prescribed. She has recently had blood work multiple times in the past 2 weeks and none of which were very interesting. Her hCG quantitative was consistently raising. She's not having any bleeding today or complaints of itching or vulvovaginal pain so we have encouraged her to finish her Flagyl. We will complete a urinalysis. Consults : Consulting Physician: JOSUE MOON MD Consults Notes Discussed the case and outpatient plan and follow-up. She agrees with the current plan she is okay with Phenergan, Zofran, diclegis. Departure Impression Primary Impression: Qualified Codes: Z3A.01 - Less than 8 weeks gestation of Additional Impressions: Nausea and vomiting during prior to 22 weeks gestation Bacterial vaginosis Disposition: HOME, SELF-CARE Condition: Stable Departure-Patient Inst. Decision time for Depature: 19:16 Referrals: FREDY BLANDON MD (PCP/Family) Primary Care Physician Patient Instructions: Nausea and Vomiting of (DC) Add. Discharge Instructions: Please start taking the doxylamine/pyridoxine up to 3 times a day as necessary for nausea vomiting. Please use Zofran 1 tablet every 6 hours as needed for nausea. Use the Phenergan 1 tablet every 6 hours as needed for nausea. Drink plenty of fluids stick to a liquid diet until you can tolerate something more. Gatorade or Powerade are advised. Keep your follow-up appointment with primary care. Please continue to take your Flagyl twice a day with food to completion. Scripts Promethazine HCl (Promethazine Tablet) 25 Mg Tablet 25 MG PO Q6H PRN for NAUSEA/VOMITING-3RD LINE, #20 TAB 0 Refills Prov: HANNAH LEE 01/03/19 Ondansetron (Ondansetron Odt) 8 Mg Tab.rapdis 8 MG PO Q6H PRN for NAUSEA/VOMITING-2ND LINE, #14 TAB 0 Refills Prov: HANNAH LEE 01/03/19 Doxylamine/Pyridoxine HCl (Sherrie Adame 10-10 mg Tablet) 1 Each Tablet.dr 1 EACH PO Q6H PRN for NAUSEA/VOMITING-1ST LINE, #30 TAB 0 Refills Prov: HANNAH LEE 01/03/19 HNANAH LEE Jan 03, 2019 16:56
[2019-01-03] MEDS ORDERED: PYRIDOXINE (VITAMIN B-6) 50 MG TABLET PO ONE (17:00)
[2019-01-03] MEDS ORDERED: ONDANSETRON 4 MG/2 ML (SDV) Z0FRAN IVP ONE (17:00)
[2019-01-03] MEDS ORDERED: diphenhydrAMINE 25 MG TAB (BENADRYL) PO ONE (17:00)
[2019-01-03 17:02] LABS: BILIRUBIN,URINE NEGATIVE (NEGATIVE); CLARITY,URINE SLIGHTLY CLOUDY; COLOR,URINE YELLOW; GLUCOSE, URINE (UA) NEGATIVE (NEGATIVE); KETONES,URINE 4+ (NEGATIVE); LEUKOCYTE ESTERASE ,URINE 1+ (NEGATIVE); NITRITE,URINE NEGATIVE (NEGATIVE); PH,URINE 6 (5-9); PROTEIN,URINE 2+ (NEGATIVE); UROBILINOGEN,URINE 1 MG/DL (NORMAL)
[2019-01-03 17:08] LABS: BACTERIA,URINE NEGATIVE /HPF; RBC,URINE RARE /HPF; WBC,URINE RARE /HPF
[2019-01-03] MEDS ORDERED: PROMETHAZINE INJ 25 MG/ML (PHENERGAN) AMP IVP ONE (17:45)
[2019-01-03] MEDS ORDERED: PROM25TA14 PO (19:21)
[2019-01-03] MEDS ORDERED: ONDA8TAB13 PO (19:21)
[2019-01-03] MEDS ORDERED: DOXY1TAB3 PO (19:21)
[2019-01-03 19:33] VITALS: BP 135/82
== END 2019-01-03 19:33 | disposition home or self-care (01) ==
LOC: EDUNIT# 16:25 → ER 16:28
DX: O23.591 Infection of other part of genital tract in pregnancy, first trimester (principal); B96.89 Other specified bacterial agents as the cause of diseases classified elsewhere; Z3A.01 Less than 8 weeks gestation of pregnancy; Z87.19 Personal history of other diseases of the digestive system
CPT/HCPCS: 81000

== ENCOUNTER 2019-01-08 17:43 | Observation (INO) | payer OTHER ==
[~2019-01-08 17:43] MED LIST changes: +DOXY1TAB3 PO; +PROM25TA14 PO
--- NOTE | 2019-01-08 18:00 | NUR ---
EKATERINA MATHIAS presented to unit via ambulation from ED, accompanied, for direct admit for hyperemesis. Pt.weighed, gowned, voided, and to bed. Pt. oriented to bed controls, call light, TV, heat, and A/C controls.
[2019-01-08] MEDS ORDERED: ONDANSETRON 4 MG/2 ML (SDV) Z0FRAN IVP PRN (18:15)
[2019-01-08] MEDS ORDERED: PROMETHAZINE INJ 25 MG/ML (PHENERGAN) AMP IVP PRN (18:15)
[2019-01-08] MEDS ORDERED: CATHETER FLUSH 10 ML SYR IV PRN (18:30)
--- NOTE | 2019-01-08 18:40 | NUR ---
up to bathroom. ua collected.
[2019-01-08 18:44] LABS: BASOPHILS % (AUTO) 0 % (0-10); EOSINOPHILS # (AUTO) 0.1 10^3/uL (0.0-0.3); EOSINOPHILS % (AUTO) 1 % (0-10); HEMATOCRIT 42 % (35-52); HEMOGLOBIN 14.7 G/DL (11.5-16.0); LYMPHOCYTES # (AUTO) 2.3 X 10^3 (1.0-4.0); LYMPHOCYTES % (AUTO) 20 % (12-44); MEAN CORPUSCULAR HEMOGLOBIN 31 PG (25-34); MEAN CORPUSCULAR HGB CONC 35 G/DL (32-36); MEAN CORPUSCULAR VOLUME 87 FL (80-99); MEAN PLATELET VOLUME 11.4 FL (7.4-10.4); MONOCYTES % (AUTO) 8 % (0-12); NEUTROPHILS # (AUTO) 8.4 X 10^3 (1.8-7.8); NEUTROPHILS % (AUTO) 72 % (42-75); PLATELET COUNT 238 10^3/uL (130-400); WHITE BLOOD COUNT 11.7 10^3/uL (4.3-11.0)
[2019-01-08 18:51] LABS: ALANINE AMINOTRANSFERASE 11 U/L (0-55); ALBUMIN 4.4 GM/DL (3.2-4.5); ALKALINE PHOSPHATASE 61 U/L (40-136); BILIRUBIN,TOTAL 1.5 MG/DL (0.1-1.0); BUN/CREATININE RATIO 10; CARBON DIOXIDE 20 MMOL/L (21-32); CHLORIDE 103 MMOL/L (98-107); GFR ESTIMATED > 60; GLUCOSE 85 MG/DL (70-105); SODIUM 138 MMOL/L (135-145); TOTAL PROTEIN 8.1 GM/DL (6.4-8.2)
[2019-01-08 19:00] VITALS: BP 100/61
[2019-01-08 19:39] LABS: BILIRUBIN,URINE 1+ (NEGATIVE); CLARITY,URINE CLEAR; COLOR,URINE YELLOW; GLUCOSE, URINE (UA) NEGATIVE (NEGATIVE); KETONES,URINE 4+ (NEGATIVE); LEUKOCYTE ESTERASE ,URINE 1+ (NEGATIVE); NITRITE,URINE NEGATIVE (NEGATIVE); PH,URINE 6 (5-9); PROTEIN,URINE 2+ (NEGATIVE); UROBILINOGEN,URINE 4 MG/DL (NORMAL)
[2019-01-08 19:45] LABS: BACTERIA,URINE TRACE /HPF
--- NOTE | 2019-01-08 20:20 | NUR ---
Dr. Sepulveda called with report of labs. Updated on pt status at this time. orders fluids to be run through the night and pt. to be placed on NPO status after midnight for ultrasounds in the morning.
[2019-01-08] MEDS ORDERED: PROMETHAZINE 25 MG (PHENERGAN) TAB PO PRN (20:30)
[2019-01-08] MEDS: POTASSIUM CL 10MEQ/50ML IVPB 50 ML IV SCH ×4 (20:46→23:30)
[2019-01-08] MEDS: D5 LR IV SOLUTION 1,000 ML IV SCH (20:47)
--- NOTE | 2019-01-08 21:00 | NUR ---
Pt complaining and crying that her IV is hurting her up her entire arm. Nurse feels around IV site. IV site possibly infiltrated at this time. Fluids stopped and IV removed at this time. IV restarted in pt right AC. Fluids running.
[2019-01-08] MEDS ORDERED: POLYETHYLENE GLYCOL 17 GM (MIRALAX) PACK PO ONE (21:15)
--- NOTE | 2019-01-08 21:30 | NUR ---
Nurse called into pt room again with pt complaining of severe pain at IV site. IV site examined. No signs or symptoms of infiltration at this time. Nurse educates pt that sometime the Potassium Chloride that is running can sting a little. Nurse offers to slow down infusion. Pt. refuses and states that she wants it turned off. Pt refuses and more doses of Potassium Chloride.
--- NOTE | 2019-01-08 22:10 | NUR ---
Nurse at pt bedside to recheck IV site. Pt states that is is no longer hurting. Still no signs of infiltration. D5LR still running at 125ml/hr.
[2019-01-08 23:10] VITALS: BP 96/54
[2019-01-09 03:49] VITALS: BP 104/66
[2019-01-09] MEDS: D5 LR IV SOLUTION 1,000 ML IV SCH (05:06)
[2019-01-09] MEDS ORDERED: KCL 20 MEQ TAB (K-DUR) PO ONE (05:30)
[2019-01-09] MEDS ORDERED: SUCR1TAB PO (07:29)
[2019-01-09] MEDS ORDERED: FAMOTIDINE 20MG/2ML IV (PEPCID) IVP NR (07:30)
[2019-01-09 09:00] VITALS: BP 89/50
--- NOTE | 2019-01-09 12:23 | Diagnostic Imaging Report ---
PROCEDURE: US Hepatic (Liver). TECHNIQUE: Multiple real-time grayscale images were obtained over the right upper quadrant in various projections. INDICATION: Abdominal pain COMPARISON: There are no prior ultrasound examinations available for comparison. By history, the patient is approximately 8 weeks . FINDINGS: There may be a very small amount of sludge within the gallbladder. The gallbladder wall is not thickened nor the common bile duct dilated. The liver does not appear enlarged. There is no focal mass involving the liver and the biliary tree is not abnormally distended. The right kidney is unremarkable for an acute abnormality. The right renal pelvis is somewhat prominent but there is no sign of hydronephrosis. The pancreas and the proximal aorta were obscured by bowel gas. IMPRESSION: 1. There is no acute abnormality of the right upper quadrant. 2. There is a question of a small amount of sludge within the gallbladder. Dictated by: Dictated on workstation # [id number]
[2019-01-09] MEDS ORDERED: MAGNESIUM 1 GM/100 ML IVPB 100 ML IV ONE (14:45)
--- NOTE | 2019-01-09 16:00 | NUR ---
Pt states voided x 1 today and had a BM. Slight nausea but did not want any antiemetic. Pt has slept most of day. Has antiemetics at home. Appt made for next week. 1834 Discharge instructions given - verbalized understanding. To exit via wheelchair - accompanied by Elsa HERNANDEZ.
--- NOTE | 2019-01-09 16:03 | Short Stay Summary ---
History of Present Illness History of Present Illness Reason for visit/HPI G1 at 8 weeks gestation has had multiple ER visits for nausea/vomiting. She got Zofran from ER, but did not help. Promethazine was prescribed from clinic, but she just picked up yesterday. She has lost 8 lbs and reported vomiting brown appearing vomit along with having some upper abdominal pain and sensation of something in the back of her throat, although she is able to swallow. Throat feels a little sore as well. Labs from ER did show slightly elevated bilirubin. She reports a history of ulcer in the past, but has not had an EGD before. Date of Admission January 08, 2019 at 18:00 Date of Discharge January 09, 2019 Time Seen by Provider: 06:25 Attending Physician Celeste Sepulveda MD Admitting Physician Celeste Sepulveda MD Consult Allergies and Home Medications Allergies Coded Allergies: No Known Drug Allergies (Unverified , 10/13/17) Home Medications Doxylamine/Pyridoxine HCl 1 Each Tablet.dr, 1 EACH PO Q6H PRN for NAUSEA/ VOMITING-1ST LINE Prescribed by: HANNAH LEE on 01/03/191920 Ondansetron 8 Mg Tab.rapdis, 8 MG PO Q6H PRN for NAUSEA/VOMITING-1ST LINE Prescribed by: ANDI DENG on 10/13/17 1238 Promethazine HCl 25 Mg Tablet, 25 MG PO Q6H PRN for NAUSEA/VOMITING-3RD LINE Prescribed by: HANNAH LEE on 01/03/19 192 Sucralfate 1 Gm Tablet, 1 GM PO QID Prescribed by: CELESTE SEPULVEDA on 01/09/19 0729 Patient Home Medication List Home Medication List Reviewed: Yes Past Xgxfdlk-Efifmn-Ztstwn Hx Patient Social History Drug of Choice: history of marijuana 2nd Hand Smoke Exposure: No Recent Foreign Travel: No Contact w/other who traveled: No Recent Hopitalizations: No Immunizations Up To Date Tetanus Booster (TDap): Unknown Pediatric: Yes Seasonal Allergies Seasonal Allergies: No Surgeries No Respiratory No Cardiovascular No Neurological No Reproductive System : Yes Sexually Transmitted Disease: No HIV/AIDS: No Genitourinary No Gastrointestinal Yes Ulcer Musculoskeletal No Endocrine History of Endocrine Disorders: No HEENT History of HEENT Disorders: No Hearing Impairment: Denies Cancer No Psychosocial History of Psychiatric Problem: No Integumentary History of Skin or Integumenta: No Blood Transfusions History of Blood Disorders: No Adverse Reaction to a Blood Tr: No Family Medical History Significant Family History: No Pertinent Family Hx Review of Systems Constitutional: No fever EENTM: No nose congestion Respiratory: No short of breath Cardiovascular: No chest pain Gastrointestinal: see HPI Genitourinary: no symptoms reported Musculoskeletal: no symptoms reported Skin: no symptoms reported Psychiatric/Neurological: No Symptoms Reported Physical Exam Vital Signs Vital Signs - First Documented 01/08/19 01/08/19 01/08/19 18:55 19:00 23:10 Temp 98.4 Pulse 83 Resp 20 B/P (MAP) 100/61 (74) Pulse Ox 99 O2 Delivery Room Air Capillary Refill : NONE Height, Weight, BMI Height: 5'7.00" Weight: 188lbs. oz. 85.358840iu; 28.12 BMI Method:Stated General Appearance: No Apparent Distress, WD/WN Respiratory: Lungs Clear, Normal Breath Sounds Cardiovascular: Regular Rate, Rhythm, No Murmur Gastrointestinal: Normal Bowel Sounds, Non Tender, Soft Extremity: No Pedal Edema Neurologic/Psychiatric: Alert, Normal Mood/Affect Skin: Normal Color, Warm/Dry Short Stay Diagnosis Discharge Diagnosis-Short Stay Admission Diagnosis: Hyperemesis gravidarum Elevated bilirubin Dysphagia Final Discharge Diagnosis: Hyperemesis gravidarum Elevated bilirubin Dysphagia Conclusion Labs Laboratory Tests 01/08/19 18:20: White Blood Count 11.7H, Red Blood Count 4.77, Hemoglobin 14.7, Hematocrit 42, Mean Corpuscular Volume 87, Mean Corpuscular Hemoglobin 31, Mean Corpuscular Hemoglobin Concent 35, Red Cell Distribution Width 12.0, Platelet Count 238, Mean Platelet Volume 11.4H, Neutrophils (%) (Auto) 72, Lymphocytes (%) (Auto) 20 , Monocytes (%) (Auto) 8, Eosinophils (%) (Auto) 1, Basophils (%) (Auto) 0, Neutrophils # (Auto) 8.4H, Lymphocytes # (Auto) 2.3, Monocytes # (Auto) 1.0, Eosinophils # (Auto) 0.1, Basophils # (Auto) 0.0, Sodium Level 138, Potassium Level 3.0L, Chloride Level 103, Carbon Dioxide Level 20L, Anion Gap 15H, Blood Urea Nitrogen 7, Creatinine 0.70, Estimat Glomerular Filtration Rate > 60, BUN/ Creatinine Ratio 10, Glucose Level 85, Calcium Level 10.0, Corrected Calcium 9.7 , Total Bilirubin 1.5H, Aspartate Amino Transf (AST/SGOT) 14, Alanine Aminotransferase (ALT/SGPT) 11, Alkaline Phosphatase 61, Total Protein 8.1, Albumin 4.4, Thyroid Stimulating Hormone (TSH) 1.52 01/08/19 19:00: Urine Color YELLOW, Urine Clarity CLEAR, Urine pH 6, Urine Specific [place] 1.015L, Urine Protein 2+H, Urine Glucose (UA) NEGATIVE, Urine Ketones 4+H, Urine Nitrite NEGATIVE, Urine Bilirubin 1+H, Urine Urobilinogen 4H, Urine Leukocyte Esterase 1+H, Urine RBC (Auto) NEGATIVE, Urine RBC NONE, Urine WBC 2-5 , Urine Squamous Epithelial Cells 2-5, Urine Crystals NONE, Urine Bacteria TRACE , Urine Casts NONE, Urine Mucus SMALLH, Urine Culture Indicated NO 01/09/19 08:59: Magnesium Level 1.5L Conclusion/Plan Potassium and magnesium replaced, given IVF overnight. No vomiting inpatient. RUQ US unremarkable except possible small amount of GB sludge. Mild bili elevation may reflect Gilbert, further w/u outpatient. Suspect dysphagia may be acid reflux related, carafate script sent. CELESTE SEPULVEDA MD January 09, 2019 16:03
[2019-01-09 16:28] LABS: ALANINE AMINOTRANSFERASE 10 U/L (0-55); ALBUMIN 4.1 GM/DL (3.2-4.5); ALKALINE PHOSPHATASE 61 U/L (40-136); BILIRUBIN,TOTAL 1.6 MG/DL (0.1-1.0); BUN/CREATININE RATIO 8; CALCIUM 9.6 MG/DL (8.5-10.1); CARBON DIOXIDE 22 MMOL/L (21-32); CHLORIDE 101 MMOL/L (98-107); CREATININE SERUM 0.63 MG/DL (0.60-1.30); GFR ESTIMATED > 60; GLUCOSE 73 MG/DL (70-105); POTASSIUM 3.3 MMOL/L (3.6-5.0); SODIUM 134 MMOL/L (135-145); TOTAL PROTEIN 7.4 GM/DL (6.4-8.2)
[2019-01-09] MEDS ORDERED: ACETAMINOPHEN 325 MG TABLET PO NR (16:30)
[2019-01-09] MEDS ORDERED: KCL 20 MEQ TAB (K-DUR) PO NR (16:45)
== END 2019-01-09 18:35 | disposition home or self-care (01) ==
LOC: LDRP 18:00 → WS 01-09 15:46
PROVIDERS: ADMIT Family Medicine; ATTEND Family Medicine
DX: O21.0 Mild hyperemesis gravidarum (principal); R13.10 Dysphagia, unspecified; R17 Unspecified jaundice
CPT/HCPCS: 36415; 76705; 80053; 81000; 83735; 84443; 85025; 96361; 96374; 96375; 99211; G0378

== ENCOUNTER 2019-01-13 13:45 | Observation (INO) | payer MEDICAID ==
[~2019-01-13] VITALS: Ht 170.2 cm; Wt 78.9 kg
[2019-01-13 13:45] VITALS: BP 110/70
[~2019-01-13 13:45] MED LIST changes: +SUCR1TAB PO
--- NOTE | 2019-01-13 13:45 | NUR ---
EKATERNIA MATHIAS presented to unit via wheelchair from office, accompanied by [facility] staff, with c/o HYPEREMESIS. EKATERINA MATHIAS weighed, gowned, voided, and to bed. EFHM and TOCO applied, VS taken. EKATERINA MATHIAS oriented to bed controls, call light, TV, heat, and A/C controls.
--- NOTE | 2019-01-13 13:47 | NUR ---
Dr. Sepulveda call and notified of pt. arrival. Orders received via telephone with readback.
[2019-01-13] MEDS ORDERED: D5 LR IV SOLUTION 1,000 ML IV ONE (14:06)
[2019-01-13] MEDS ORDERED: CATHETER FLUSH 10 ML SYR IV PRN (14:15)
[2019-01-13] MEDS: D5 LR IV SOLUTION 1,000 ML IV SCH ×2 (14:42→21:12)
[2019-01-13 14:44] LABS: BASOPHILS % (AUTO) 0 % (0-10); EOSINOPHILS % (AUTO) 0 % (0-10); HEMATOCRIT 41 % (35-52); HEMOGLOBIN 14.3 G/DL (11.5-16.0); LYMPHOCYTES # (AUTO) 1.7 X 10^3 (1.0-4.0); LYMPHOCYTES % (AUTO) 13 % (12-44); MEAN CORPUSCULAR HEMOGLOBIN 30 PG (25-34); MEAN CORPUSCULAR HGB CONC 35 G/DL (32-36); MEAN CORPUSCULAR VOLUME 87 FL (80-99); MEAN PLATELET VOLUME 11.7 FL (7.4-10.4); MONOCYTES # (AUTO) 0.8 X 10^3 (0.0-1.0); MONOCYTES % (AUTO) 6 % (0-12); NEUTROPHILS # (AUTO) 10.8 X 10^3 (1.8-7.8); NEUTROPHILS % (AUTO) 81 % (42-75); PLATELET COUNT 239 10^3/uL (130-400); RED CELL DISTRIBUTION WIDTH 12.2 % (10.0-14.5); WHITE BLOOD COUNT 13.4 10^3/uL (4.3-11.0)
[2019-01-13 15:11] LABS: ALANINE AMINOTRANSFERASE 11 U/L (0-55); ALBUMIN 4.5 GM/DL (3.2-4.5); ALKALINE PHOSPHATASE 64 U/L (40-136); BILIRUBIN,TOTAL 1.2 MG/DL (0.1-1.0); BUN/CREATININE RATIO 11; CARBON DIOXIDE 22 MMOL/L (21-32); CHLORIDE 101 MMOL/L (98-107); CREATININE SERUM 0.65 MG/DL (0.60-1.30); GFR ESTIMATED > 60; GLUCOSE 69 MG/DL (70-105); POTASSIUM 3.5 MMOL/L (3.6-5.0); SODIUM 136 MMOL/L (135-145); TOTAL PROTEIN 7.9 GM/DL (6.4-8.2)
--- NOTE | 2019-01-13 15:22 | NUR ---
Dr. Sepulveda call with lab results and updated that pt. complains of burning in her stomach. Orders received for pepcid 20mg Q12h.
[2019-01-13] MEDS: FAMOTIDINE 20MG/2ML IV (PEPCID) IVP SCH (15:40)
[2019-01-13 16:15] VITALS: BP 103/67
[2019-01-13] MEDS: PROMETHAZINE INJ 25 MG/ML (PHENERGAN) AMP IVP PRN (18:57)
[2019-01-14 00:45] VITALS: BP 100/62
[2019-01-14] MEDS: FAMOTIDINE 20MG/2ML IV (PEPCID) IVP SCH ×2 (03:32→15:42)
[2019-01-14] MEDS: D5 LR IV SOLUTION 1,000 ML IV SCH ×3 (03:33→17:26)
--- NOTE | 2019-01-14 07:07 | NUR ---
Called Dr. Sepulveda, update given, no Addendum: 01/14/19 at 0719 by MELISSA MCMAHON RN Called Dr. Sepulveda, update given, including pt. denying voiding all night. New orders rc'd for 1 L LR bolus & Dr. JUAREZ states she will give report to Dr. Tavarez & Dr. Tavarez for her to round on pt.
[2019-01-14] MEDS ORDERED: LACTATED RINGERS 1,000 ML IV ONE (07:15)
--- NOTE | 2019-01-14 07:36 | NUR ---
PT RESTING, LIGHTS OUT. LR FLUID BOLUS HUNG AND INFUSING WITHOUT DIFFICULTY; SEE EMAR FOR FURTHER.
[2019-01-14 07:48] LABS: BUN/CREATININE RATIO 8; CARBON DIOXIDE 23 MMOL/L (21-32); CHLORIDE 104 MMOL/L (98-107); CREATININE SERUM 0.52 MG/DL (0.60-1.30); GFR ESTIMATED > 60; GLUCOSE 99 MG/DL (70-105); POTASSIUM 2.7 MMOL/L (3.6-5.0); SODIUM 136 MMOL/L (135-145)
[2019-01-14 07:52] VITALS: BP 106/55
[2019-01-14] MEDS ORDERED: KCL 20 MEQ TAB (K-DUR) PO NR ×2 (08:15→17:00)
[2019-01-14] MEDS: SUCRALFATE 1 GM (CARAFATE) TAB PO SCH ×3 (11:59→21:06)
[2019-01-14 12:30] VITALS: BP 97/58
--- NOTE | 2019-01-14 13:03 | History & Physicial ([facility]) ---
HPI History of Present Illness: Patient with of 7 weeks who presents with nausea/vomiting and weight loss of 18 pounds along with epigastric abdominal pain. History of having an gastric ulcer per patient. She was trying zofran and phenergan at home. Sent over from clinic yesterday for admission along with IVF. She has not urinated yet so was given another bolus this morning. Labwork shows hypokalemia. Patient complains of burning in the back of her throat that she wakes up with. She denies diarrhea. Source: patient Exam Limitations: no limitations Date seen by provider: January 14, 2019 Time Seen by Provider: 08:00 Attending Physician Josue Moon MD PCP Celeste Sepulveda MD Consult Date of Admission January 14, 2019 at 08:30 Home Medications Home Medications Reviewed patient Home Medication Reconciliation performed by pharmacy medication reconciliations home appliance technician and/or nursing. Patients Allergies have been reviewed. Allergies Coded Allergies: No Known Drug Allergies (Unverified , 10/13/17) JQK-Pjbmgb-Yzgexs Hx Patient Social History Alcohol Use: Denies Use Drug of Choice: history of marijuana 2nd Hand Smoke Exposure: No Recent Foreign Travel: No Contact w/other who traveled: No Recent Hopitalizations: No Recent Infectious Disease Expo: No Physical Abuse Screen: No Sexual Abuse: No Immunizations Up To Date Tetanus Booster (TDap): Unknown Family Medical History Significant Family History: No Pertinent Family Hx Review of Systems ([facility]) Constitutional: No chills, No diaphoresis, No fever EENTM: throat pain; No ear discharge, No ear pain, No double vision, No mouth pain Respiratory: No cough, No dyspnea on exertion Cardiovascular: No chest pain, No edema Gastrointestinal: RUQ, LUQ, abdominal pain (LUQ); No constipation, No diarrhea ; heartburn, nausea, vomiting Genitourinary: decreased output : Yes Musculoskeletal: No back pain, No joint pain Skin: No lesions, No lumps Reviewed Test Results Reviewed Test Results Lab Laboratory Tests 01/14/19 07:24: Sodium Level 136, Potassium Level 2.7L, Chloride Level 104, Carbon Dioxide Level 23, Anion Gap 9, Blood Urea Nitrogen 4L, Creatinine 0.52L, Estimat Glomerular Filtration Rate > 60, BUN/Creatinine Ratio 8, Glucose Level 99, Calcium Level 9.0 Physical Exam-([facility]) Physical Exam Vital Signs VS - Last 72 Hours, by Label 01/13/19 01/13/19 01/14/19 01/14/19 13:45 16:15 00:45 07:52 Temp 98.0 98.7 99.0 99.4 Pulse 80 78 Resp 20 20 18 18 B/P (MAP) 110/70 (83) 103/67 (79) 100/62 (75) 106/55 (72) Pulse Ox 98 O2 Delivery Room Air Room Air Room Air Room Air 01/14/19 12:30 Temp 98.9 Pulse 88 Resp 18 B/P (MAP) 97/58 (71) Pulse Ox 100 O2 Delivery Room Air Capillary Refill : General Appearance: no apparent distress Neck: full range of motion Respiratory: lungs clear Cardiovascular: regular rate, rhythm, no murmur Gastrointestinal: normal bowel sounds Extremities: normal range of motion, no pedal edema Neurologic/Psychiatric: alert, normal mood/affect, oriented x 3 Assessment/Plan Assessment/Plan Admission Dx GERD, nausea vomiting, weight loss Admission Status: Observation (1) GERD with esophagitis Assessment & Plan: Start IV pepcid. Will change to PPI if not improving. Start carafate. (2) Vomiting affecting Assessment & Plan: Promethazine and zofran prn. Advance diet as tolerated. (3) Weight loss (4) Hyperemesis gravidarum (5) Hypokalemia due to loss of potassium Assessment & Plan: Replace orally 40 mg BID today. Recheck in AM with magnesium level. JOSUE MOON MD January 14, 2019 13:03
--- NOTE | 2019-01-14 13:05 | NUR ---
DR. MOON CALLED UNIT, UPDATE GIVEN. NO NEW ORDERS RECEIVED. PLAN TO KEEP PT ANOTHER NIGHT.
[2019-01-14] MEDS: PROMETHAZINE INJ 25 MG/ML (PHENERGAN) AMP IVP PRN ×2 (15:42→23:22)
--- NOTE | 2019-01-14 15:48 | NUR ---
PT RESTING, MEDS GIVEN; SEE EMAR FOR FURTHER. PT C/O BEING NAUSEOUS AND UPPER ABD CRAMPS THAT COME AND GO.
--- NOTE | 2019-01-14 15:54 | NUR ---
DR. MOON CALLED UNIT, UPDATE GIVEN. NEW ORDERS RECEIVED.
[2019-01-14 15:56] VITALS: BP 102/61
[2019-01-14 21:08] VITALS: BP 95/55
[2019-01-14] MEDS: PANTOPRAZOLE 40 MG (PROTONIX) VIAL IV SCH (21:36)
--- NOTE | 2019-01-14 23:00 | NUR ---
This rn called to room by pt standing in the bathroom over trash can. States vomitted. Emesis appears to be white (pt states tasted like medicine) with bright red blood tinges. Assessment done.
--- NOTE | 2019-01-14 23:08 | NUR ---
Called Dr Tavarez to report blood in emesis. No new orders at this time. Pt requesting nausea meds. Will monitor.
[2019-01-15] MEDS: D5 LR IV SOLUTION 1,000 ML IV SCH ×3 (00:12→12:25)
--- NOTE | 2019-01-15 01:57 | NUR ---
Report received from Alice Miller rn.
--- NOTE | 2019-01-15 02:00 | NUR ---
Report given to Cayetano shaw rn.
[2019-01-15 04:20] VITALS: BP 100/60
[2019-01-15 05:06] LABS: BUN/CREATININE RATIO 4; CALCIUM 8.8 MG/DL (8.5-10.1); CARBON DIOXIDE 22 MMOL/L (21-32); CHLORIDE 108 MMOL/L (98-107); CREATININE SERUM 0.57 MG/DL (0.60-1.30); GFR ESTIMATED > 60; GLUCOSE 87 MG/DL (70-105); MAGNESIUM 1.5 MG/DL (1.8-2.4); POTASSIUM 3.3 MMOL/L (3.6-5.0); SODIUM 137 MMOL/L (135-145)
[2019-01-15] MEDS: SUCRALFATE 1 GM (CARAFATE) TAB PO SCH ×4 (05:42→21:36)
--- NOTE | 2019-01-15 05:42 | NUR ---
pt does not want to take sucralfate at this time, enc pt to request med before am meal.
--- NOTE | 2019-01-15 07:40 | NUR ---
Dr. Tavarez to room to see pt.
[2019-01-15] MEDS ORDERED: MAGNESIUM 1 GM/100 ML IVPB 100 ML IV NR (07:45)
--- NOTE | 2019-01-15 07:49 | Progress Note (SOAP) ---
Subjective Subjective/Events-last exam Did vomit once last night with small amount of blood in vomit. This morning she thinks that her throat and stomach are feeling somewhat better. She ate very little yesterday. Review of Systems Date Seen by Provider: January 15, 2019 Time Seen by Provider: 07:49 Objective Exam Last Set of Vital Signs Vital Signs Date Time Temp Pulse Resp B/P (MAP) Pulse Ox O2 Delivery O2 Flow Rate FiO2 01/15/19 04:20 99.2 83 16 100/60 (73) 97 Room Air Capillary Refill : I&O Intake and Output 01/15/19 00:00 Intake Total 4200 ml Output Total 1200 ml Balance 3000 ml Intake Oral 200 ml IV Total 4000 ml Output Urine Total 1200 ml General: Alert, Oriented X3 Lungs: Clear to Auscultation Heart: Regular Rate Abdomen: Normal Bowel Sounds, Other (tender to palpation epigastric area) Results/Procedures Lab Laboratory Tests 01/15/19 04:40: Sodium Level 137, Potassium Level 3.3L, Chloride Level 108H, Carbon Dioxide Level 22, Anion Gap 7, Blood Urea Nitrogen < 2L, Creatinine 0.57L, Estimat Glomerular Filtration Rate > 60, BUN/Creatinine Ratio 4, Glucose Level 87, Calcium Level 8.8, Magnesium Level 1.5L Assessment/Plan Assessment/Plan Admission Status: Observation (1) GERD with esophagitis Assessment & Plan: Start IV pepcid. Will change to PPI if not improving. Start carafate. 01/15- Started protonix last night. Carafate qachs. (2) Vomiting affecting Assessment & Plan: Promethazine and zofran prn. Advance diet as tolerated. (3) Weight loss (4) Hyperemesis gravidarum (5) Hypokalemia due to loss of potassium Assessment & Plan: Replace orally 40 mg BID today. Recheck in AM with magnesium level. 01/15- Replaced yesterday. 3.3 today. (6) Hypomagnesemia Assessment & Plan: 01/15- Replace mag IV today. JOSUE MOON MD January 15, 2019 07:49
[2019-01-15] MEDS: PANTOPRAZOLE 40 MG (PROTONIX) VIAL IV SCH (08:55)
[2019-01-15 08:57] VITALS: BP 101/64
--- NOTE | 2019-01-15 09:00 | NUR ---
Pt sleeping soundly upon RN entering room. Pt awakens to name and gentle shaking, answers questions but immediately falls back asleep. Pt notified of meds being given and VS taken. Will complete full assessment when pt awake.
--- NOTE | 2019-01-15 12:20 | NUR ---
PT called RN to room. Pt in bathroom, +void. Pt noted to be gagging and coughing up blood-tinged mucous into trash can. Pt assisted back to bed.
[2019-01-15] MEDS: PROMETHAZINE INJ 25 MG/ML (PHENERGAN) AMP IVP PRN (12:23)
--- NOTE | 2019-01-15 13:25 | NUR ---
Pt c/o severe burning in IV for past 30min. No s/s of infiltration noted, but pt insisting on pulling IV and ice pack applied to site. Dr. Tavarez notified of IV pulled and difficulty starting new. Reported to Dr. Tavarez pt has not yet eaten despite encouragement per this RN several times, Carafate and phenergan both given and magnesium infused. Orders to leave IV out at this time and continue to encourage pt to eat. If able to tolerate, may D/C home this evening with follow up with Dr. Sepulveda tomorrow.
[2019-01-15] MEDS ORDERED: PANT40TA2 PO (13:26)
[2019-01-15 16:00] VITALS: BP 110/66
--- NOTE | 2019-01-15 16:00 | NUR ---
Pt sleeping upon entering the room. Full jello and half jello sitting at bedside. Pt awakened for VS and states thats all she could eat. C/o of "stomach hurting." When asked to elaborate further, all she would say is "lower" and that her "throat hurt". VS taken. Pt dry heaving following VS with scant amount of clear, mucousy fluid noted in emesis bag. Cool wash cloth provided. Pt has ice water and sprite at bedside. Denies further needs or concerns at this time. Hat emptied, 900ml clear, yellow urine. Dr. Tavarez updated on pt status, c/o, and vs, order for clean catch UA rec'd.
--- NOTE | 2019-01-15 16:45 | NUR ---
Clean catch kit provided to pt and pt educated on performing clean catch. Pt verbalizes understanding. Instructed pt to call when finished for collection.
--- NOTE | 2019-01-15 18:05 | NUR ---
Dr Tavarez called with update. Pt with appropriate output, still has not eaten, has occasional emesis and is miserable. Order for banana bag tonight followed by D5LR and CBC/CMP in am.
[2019-01-15] MEDS ORDERED: THIAMINE INJECTION 100 MG, FOLIC ACID INJECTION 1 MG, VITAMIN MULTI INJECTION 10 ML, MA... IV ONE ×5 (18:30)
[2019-01-15 19:33] LABS: BILIRUBIN,URINE NEGATIVE (NEGATIVE); CLARITY,URINE CLEAR; COLOR,URINE YELLOW; GLUCOSE, URINE (UA) NEGATIVE (NEGATIVE); KETONES,URINE NEGATIVE (NEGATIVE); LEUKOCYTE ESTERASE ,URINE NEGATIVE (NEGATIVE); NITRITE,URINE NEGATIVE (NEGATIVE); PH,URINE 8 (5-9); PROTEIN,URINE NEGATIVE (NEGATIVE); UROBILINOGEN,URINE NORMAL (NORMAL)
[2019-01-15 19:41] LABS: BACTERIA,URINE NEGATIVE /HPF; WBC,URINE RARE /HPF
--- NOTE | 2019-01-15 21:35 | NUR ---
Pt reports friend bringing her food, rn asks what type of food, pt reports [employer], education provided, pt reports understanding, rn offered crackers pt refused. Carafate admin, see emar. vss, pt denies further needs. will cont to monitor.
[2019-01-15 21:36] VITALS: BP 88/57
[2019-01-16 06:27] LABS: BASOPHILS % (AUTO) 0 % (0-10); EOSINOPHILS # (AUTO) 0.1 10^3/uL (0.0-0.3); EOSINOPHILS % (AUTO) 1 % (0-10); HEMATOCRIT 34 % (35-52); HEMOGLOBIN 11.6 G/DL (11.5-16.0); LYMPHOCYTES # (AUTO) 2.9 X 10^3 (1.0-4.0); LYMPHOCYTES % (AUTO) 34 % (12-44); MEAN CORPUSCULAR HEMOGLOBIN 30 PG (25-34); MEAN CORPUSCULAR HGB CONC 34 G/DL (32-36); MEAN CORPUSCULAR VOLUME 89 FL (80-99); MEAN PLATELET VOLUME 11.7 FL (7.4-10.4); MONOCYTES # (AUTO) 0.8 X 10^3 (0.0-1.0); MONOCYTES % (AUTO) 9 % (0-12); NEUTROPHILS # (AUTO) 4.8 X 10^3 (1.8-7.8); NEUTROPHILS % (AUTO) 56 % (42-75); PLATELET COUNT 187 10^3/uL (130-400); RED CELL DISTRIBUTION WIDTH 11.8 % (10.0-14.5); WHITE BLOOD COUNT 8.6 10^3/uL (4.3-11.0)
[2019-01-16 06:46] LABS: ALANINE AMINOTRANSFERASE 7 U/L (0-55); ALBUMIN 3.2 GM/DL (3.2-4.5); ALKALINE PHOSPHATASE 45 U/L (40-136); BILIRUBIN,TOTAL 0.6 MG/DL (0.1-1.0); BUN/CREATININE RATIO 4; CALCIUM 8.5 MG/DL (8.5-10.1); CARBON DIOXIDE 20 MMOL/L (21-32); CHLORIDE 109 MMOL/L (98-107); CREATININE SERUM 0.53 MG/DL (0.60-1.30); GFR ESTIMATED > 60; GLUCOSE 89 MG/DL (70-105); POTASSIUM 3.2 MMOL/L (3.6-5.0); SODIUM 136 MMOL/L (135-145); TOTAL PROTEIN 5.7 GM/DL (6.4-8.2)
[2019-01-16] MEDS ORDERED: KCL 20 MEQ TAB (K-DUR) PO ONE (07:00)
[2019-01-16] MEDS ORDERED: SUCR1TAB PO (07:40)
--- NOTE | 2019-01-16 07:44 | Discharge Summary ---
Diagnosis/Chief Complaint Date of Admission January 14, 2019 at 08:30 Date of Discharge January 16, 2019 Admission Diagnosis Admission Diagnosis GERD, hyperemesis gravidarum Discharge Diagnosis GERD Problems/Diagnosis: (1) GERD with esophagitis Assessment & Plan: Start IV pepcid. Will change to PPI if not improving. Start carafate. 01/15- Started protonix last night. Carafate qachs. 01/16- 2 doses of protonix. Tolerated [employer] last night. Feeling better. Will send home. (2) Vomiting affecting Assessment & Plan: Promethazine and zofran prn. Advance diet as tolerated. (3) Weight loss (4) Hyperemesis gravidarum (5) Hypokalemia due to loss of potassium Assessment & Plan: Replace orally 40 mg BID today. Recheck in AM with magnesium level. 01/15- Replaced yesterday. 3.3 today. (6) Hypomagnesemia Assessment & Plan: 01/15- Replace mag IV today. Chief Complaint/HPI Chief Complaint/HPI Patient with of 7 weeks who presents with nausea/vomiting and weight loss of 18 pounds along with epigastric abdominal pain. History of having an gastric ulcer per patient. She was trying zofran and phenergan at home. Sent over from clinic yesterday for admission along with IVF. She has not urinated yet so was given another bolus this morning. Labwork shows hypokalemia. Patient complains of burning in the back of her throat that she wakes up with. She denies diarrhea. Discharge Summary-Simple/Stand Consultations Discharge Physical Examination Allergies: Coded Allergies: No Known Drug Allergies (Unverified , 10/13/17) Vitals & I&Os Vital Sign - Last 12Hours Date Time Temp Pulse Resp B/P (MAP) Pulse Ox O2 Delivery O2 Flow Rate FiO2 01/15/19 21:36 99.5 82 16 88/57 (67) 97 Room Air Intake and Output 01/16/19 00:00 Intake Total 300 ml Output Total 2200 ml Balance -1900 ml Hospital Course See final discharge diagnosis. Discharge Instructions to patient/family Please see electronic discharge instructions given to patient. Discharge Medications Reviewed and agree with Discharge Medication list on patient's Discharge Instruction sheet JOSUE MOON MD January 16, 2019 07:44
[2019-01-16 08:00] VITALS: BP 99/58
--- NOTE | 2019-01-16 08:00 | NUR ---
EATING BREAKFAST. PLAN FOR DISCHARGE. IV D/C'ED. SITE CLEAR. DENIES PAIN OR EMESIS.
[2019-01-16] MEDS: SUCRALFATE 1 GM (CARAFATE) TAB PO SCH (08:47)
--- NOTE | 2019-01-16 09:35 | NUR ---
DISCHARGE INSTRUCTIONS REVIEWED WITH COPY TO PT. STATES UNDERSTANDING OF ALL INSTRUCTIONS AND NEED TO F/U SOON POSSIBLE WITH NEW OB R/T MOVING HOME TO [facility]..PT HAS BEEN TRYING TO FIND A RIDE HOME.
--- NOTE | 2019-01-16 10:00 | NUR ---
[facility] CALLED TO [facility] PER PT REQUEST.
--- NOTE | 2019-01-16 11:30 | NUR ---
NO LUCK WITH TRANSPORTATION HOME. WILL CONTINUE TO TRY.
[2019-01-16 13:00] VITALS: BP 99/58
--- NOTE | 2019-01-16 13:00 | NUR ---
DISMISSED AMB FROM [facility] TO [facility] IN STABLE CONDITION [facility] BY MAURA HERNANDEZ.
== END 2019-01-16 07:36 | disposition home or self-care (01) ==
LOC: LDRP 13:45 → WSo 13:49 → LDRP 13:50 → WSo 01-14 08:30 → LDRP 01-14 08:30 → UNDOADMOB 01-14 08:30 → LDRP 01-14 08:30 → WS 01-15 13:07 → UNDODISOB 01-16 13:00 → EDSTATUS 01-20 14:17
PROVIDERS: ADMIT Family Medicine; ATTEND Family Medicine
DX: O99.611 Diseases of the digestive system complicating pregnancy, first trimester (principal); K21.0 Gastro-esophageal reflux disease with esophagitis; O21.1 Hyperemesis gravidarum with metabolic disturbance; R63.4 Abnormal weight loss; O99.281 Endocrine, nutritional and metabolic diseases complicating pregnancy, first trimester; E83.42 Hypomagnesemia; Z3A.01 Less than 8 weeks gestation of pregnancy
CPT/HCPCS: 36415; 80048; 80053; 81000; 83735; 85025; 96361; 96374; 96375; 96376; 99211; G0378